=== PATIENT | female | born 1985 | race Caucasian/White ===

== ENCOUNTER 2019-09-21 09:54 | Outpatient (RCR) | payer OTHER, SELFPAY ==
--- NOTE | 2019-09-21 11:12 | OTOPEVAL ---
Thank you for referring this patient to [facility] [place]. Please review, sign, date and return this plan of care VARUN. I agree with and certify that the following plan of care is medically necessary. Referring Physician Date Admitting Provider: Attending Provider: PHYSICIAN NOT ON STAFF Referring Provider: *OT Outpatient Evaluation Start: 09/21/19 10:03 Freq: Status: Active Protocol: Document 09/21/19 10:04 [facility] (Rec: 09/21/19 11:11 [facility] [id number]) Therapy Assessment Status Assessment Status Assessment Status Evaluation Outpatient Past Medical History Other History Hx Other Surgeries Yes: ulnar nerve release, lipoma removal Evaluation Information Problem Diagnosis radial styloid tenosynovitis Onset 09/02/19 Cause R de quervains release Additional Evaluation Detail Surgery on 09/02/19 Subjective Information Patient reports a history of R Query Text:As Reported By Patient/ wrist/thumb pain for the last Family year. She had surgery on and presents in a forearm thumb spica orthosis. Patient reports that it has been painful to move. Diagnostic Tests X-Rays For This Problem Yes MRI For This Problem Yes Prior Level of Function Activity Level (Last 3 Months) Hand Dominance Right Activity of Daily Living Ability Independent Indoor/Home Mobility Independent Community Mobility Independent Stairs Ability Independent Functional Cognition (Planning, Shopping Independent , Taking Medications) Cooking Yes Cleaning Yes Laundry Yes Shopping Yes Driving Yes Medications Home Meds (Include: OTC, RX, Vitamins, Advil Herbals, Dose, Route,and Frequency) Query Text:Home Med Entries Will No Longer Recall From Past Visits. Home Meds Must Be Re-entered With Each Visit. Home Setting Home Type House Living Situation With Minor Child,With Spouse Mobility Assistive Devices (Used Last 3 None Months) Pain Assessment Timing of Pain Assessment Timing of Pain Assessment Assessment Pain Scale Pain Scale Used Numeric (1 - 10) Self Report Pain Assessment Right Wrist(s) Reported Pain Level 2 Lowest Pain Intensity 2 Greatest Pain Intensity 8 Other Pain Aggravating Factors wrist movement Other Alleviating Interventions advil Pain Score
== END 2019-10-20 16:00 | disposition home or self-care (01) ==
LOC: CHSOT 09:54
DX: M65.4 Radial styloid tenosynovitis [de Quervain] (principal)
CPT/HCPCS: 97035; 97110; 97140; 97165

== ENCOUNTER 2020-03-14 13:32 | Outpatient (NON) | payer OTHER, SELFPAY ==
[2020-03-14 13:52] LABS: Add Urine Microscopic? YES; Appearance Urine Sl Cloudy (Clear); Bilirubin Urine Negative (Negative); Blood Urine Negative (Negative); Color Urine Yellow (Yellow); Glucose Urine UA Negative (Negative); Ketones Urine Negative (Negative); Leukocyte Esterase Ur 1+ LEU/UL (Negative); Nitrate Urine Negative (Negative); Protein Urine Negative (Negative); Specific Grav Ur 1.025 (1.010-1.020); Urobilinogen Urine 0.2 mg/dL (0.2-1.0); pH Urine 6.5 (5.0-8.0)
[2020-03-14 14:09] LABS: RBC Urine 0-2 /hpf (0-2)
[2020-03-14 14:10] LABS: Bacteria Urine 4+ /hpf; Squamous Epithelial Cell Urine Moderate /hpf (Few)
== END 2020-03-14 13:33 ==
LOC: CHSLAB 13:32
PROVIDERS: Visit Provider Nurse Practitioner Family
DX: R10.9 Unspecified abdominal pain (principal)
CPT/HCPCS: 81001; 87086; 87088

== ENCOUNTER 2020-03-18 07:26 | Outpatient (CLI) | payer OTHER, SELFPAY ==
--- NOTE | ~2020-03-18 | US_ITS ---
US abdomen complete DATE: 03/18/2020 08:30 INDICATION: Abdominal pain TECHNIQUE: Real-time imaging of the abdomen, Doppler analysis COMPARISON: 12/02/2012 CT abdomen pelvis 06/14/2016 abdominal ultrasound FINDINGS: No hepatic or pancreatic space-occupying mass lesion is evident. There is normal hepatopeda l portal venous flow direction. There is borderline splenic size, the spleen measuring approximately 13 cm length, 14 cm being upper limits of normal. There are numerous filling defects in the dependent aspect of the gallbladder, with shadowing, consis tent with cholelithiasis. No gallbladder wall thickening or pericholecystic abnormal fluid collection is noted. Negative sonographic Curtis's sign. The common bile duct measures 4 mm, within normal limits. No renal mass lesion is evident. The right kidney measures approximately 11.4 cm length, the left kid ra 12.1 cm length. No hydronephrosis. Normal caliber of the abdominal aorta. The inferior vena cava is patent and unremarkable. IMPRESSION: Numerous gallstones Borderline splenic size Reviewed, dictated and finalized at [facility]. Reviewed, dictated and finalized at location A.
[2020-03-18 09:19] LABS: Alanine Aminotransferase 47 U/L (14-59); Albumin Level 3.8 g/dL (3.4-5.0); Alkaline Phosphatase 62 U/L (46-116); Amylase 43 U/L (25-115); Anion Gap 8 mmol/L (8-16); Aspartate Amino Transferase 27 U/L (15-37); Bilirubin,Total 0.7 mg/dL (0.00-1.00); Blood Urea Nitrogen 12 mg/dL (7-18); Calcium 8.8 mg/dL (8.5-10.1); Carbon Dioxide 29 mmol/L (21-32); Chloride 105 mmol/L (98-108); Estimated Glomerular Filt Rate > 60; Glucose 85 mg/dL (70-99); Lipase 116 U/L (73-393); Osmolality Calculated 292 mOsm/kg (285-295); Potassium 4.1 mmol/L (3.5-5.1); Sodium 142 mmol/L (136-145); Total Protein 6.9 g/dL (6.4-8.2)
[2020-03-24 07:00] LABS: H pylori Ag Stool Not Detected (Not Detected)
== END 2020-03-18 07:27 | disposition home or self-care (01) ==
LOC: CHSIMG 07:28
PROVIDERS: PCP Nurse Practitioner Family; Visit Provider Nurse Practitioner Family
DX: R10.9 Unspecified abdominal pain (principal)
CPT/HCPCS: 36415; 76700; 80053; 82150; 83690; 87338

== ENCOUNTER 2020-12-12 16:15 | Outpatient (CLI) | payer OTHER, SELFPAY ==
[2020-12-12 17:43] LABS: SARS-CoV-2 RNA PCR Positive (Negative)
== END 2020-12-12 16:16 | disposition home or self-care (01) ==
LOC: CHSLAB 16:18
PROVIDERS: PCP Nurse Practitioner Family; Visit Provider Nurse Practitioner Family
DX: U07.1 COVID-19 (principal)
CPT/HCPCS: C9803; U0003; U0005

== ENCOUNTER 2021-07-05 09:26 | Outpatient (CLI) | payer OTHER, SELFPAY ==
--- NOTE | ~2021-07-05 | XR_ITS ---
XR chest 2V 07/05/2021 09:44 Indication: Acute upper respiratory infection Procedure: 2 view chest Comparison: Comparison to multiple prior studies sequentially, with oldest reviewed study dated 06/05. Findings: Left basilar atelectasis. No focal pneumonia, edema, pleural effusion or pneumothorax. No a cute osseous abnormality. Impression: 1: Left basilar atelectasis. Reviewed, dictated and finalized at location B. 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
== END 2021-07-05 09:27 | disposition home or self-care (01) ==
LOC: CHSIMG 09:30
PROVIDERS: PCP Nurse Practitioner Family; Visit Provider Family Medicine
DX: J06.9 Acute upper respiratory infection, unspecified (principal)
CPT/HCPCS: 71046

== ENCOUNTER 2021-07-22 09:13 | Outpatient (CLI) | payer OTHER, SELFPAY ==
[2021-07-22 09:44] LABS: Hemoglobin A1C 5.8 % (<5.7)
[2021-07-22 09:58] LABS: Free T4 Free Thyroxine 1.07 ng/dL (0.76-1.46); Thyroid Stimulating Hormone 2.29 uIU/mL (0.36-3.74)
[2021-07-26 04:31] LABS: Insulin Level Total 17.1 uIU/mL (<=19.6)
[2021-07-26 10:12] LABS: DHEA-Sulfate 112 mcg/dL (23-266)
[2021-07-26 11:59] LABS: Prolactin 6.9 ng/mL (***)
[2021-07-26 14:12] LABS: Testosterone Total 26 ng/dL (2-45)
== END 2021-07-22 09:14 | disposition home or self-care (01) ==
LOC: CHSLAB 09:15
PROVIDERS: PCP Nurse Practitioner Family; Visit Provider Nurse Practitioner
DX: E28.2 Polycystic ovarian syndrome (principal)
CPT/HCPCS: 36415; 82627; 83036; 83498; 83525; 84146; 84403; 84439; 84443

== ENCOUNTER 2022-01-15 10:14 | Outpatient (CLI) | payer OTHER, SELFPAY ==
[2022-01-15 10:26] LABS: Hematocrit 37.3 % (35.0-49.0); Hemoglobin 11.9 g/dL (12.0-15.0); Mean Corpuscular HGB Conc 31.9 g/dL (32.0-36.0); Mean Corpuscular Volume 84.8 fL (78.0-102.0); Mean Platelet Volume 9.2 fl (9.2-11.8); Platelet Count Result 174 K/mm3 (150-420); Red Cell Distribution Width 13.3 % (11.6-14.4); White Blood Count 5.4 K/mm3 (4.8-10.8)
[2022-01-15 10:37] LABS: Hemoglobin A1C 5.7 % (<5.7)
[2022-01-15 11:07] LABS: Alanine Aminotransferase 51 U/L (14-59); Albumin Level 3.5 g/dL (3.4-5.0); Alkaline Phosphatase 69 U/L (46-116); Anion Gap 5 mmol/L (8-16); Aspartate Amino Transferase 29 U/L (15-37); Bilirubin,Total 0.5 mg/dL (0.00-1.00); Blood Urea Nitrogen 14 mg/dL (7-18); Calcium 8.4 mg/dL (8.5-10.1); Carbon Dioxide 28 mmol/L (21-32); Chloride 107 mmol/L (98-108); Cholesterol 121 mg/dL (0-200); Estimated Glomerular Filt Rate > 60; Free T4 Free Thyroxine 1.25 ng/dL (0.76-1.46); Glucose 90 mg/dL (70-99); HDL Direct 36 mg/dL (40-60); LDL Cholesterol Calculated 71 mg/dL (<130); Osmolality Calculated 290 mOsm/kg (285-295); Sodium 140 mmol/L (136-145); Thyroid Stimulating Hormone 1.85 uIU/mL (0.36-3.74); Total Protein 7.2 g/dL (6.4-8.2); Triglycerides 71 mg/dL (0-150); Vitamin B12 539 pg/mL (193-986)
[2022-01-17 15:36] LABS: Vitamin D 25 Hydroxy 25 ng/mL (30-100)
== END 2022-01-15 10:15 | disposition home or self-care (01) ==
LOC: CHSLAB 10:17
PROVIDERS: PCP Nurse Practitioner Family; Visit Provider Nurse Practitioner
DX: Z01.419 Encounter for gynecological examination (general) (routine) without abnormal findings (principal); R53.83 Other fatigue
CPT/HCPCS: 36415; 80053; 80061; 82306; 82607; 83036; 84439; 84443; 85027

== ENCOUNTER 2022-02-28 12:20 | Outpatient (CLI) | payer OTHER, SELFPAY ==
[2022-02-28 13:22] LABS: SARS-CoV-2 RNA PCR Positive (Negative)
== END 2022-02-28 12:21 | disposition home or self-care (01) ==
LOC: CHSLAB 12:22
PROVIDERS: PCP Nurse Practitioner Family; Visit Provider Family Medicine
DX: U07.1 COVID-19 (principal)
CPT/HCPCS: C9803; U0003; U0005

== ENCOUNTER 2022-03-19 09:20 | Outpatient (CLI) | payer OTHER, SELFPAY ==
--- NOTE | ~2022-03-19 | XR_ITS ---
XR knee RT min 4V 03/19/2022 09:46 Indication: Right knee pain Procedure: 5 views right knee Comparison: No prior studies for comparison. Findings: No fracture, subluxation or dislocation. There is mild osteoarthritis. No significant joint effusion. No focal soft tissue abnormality. No foreign bodies. Impression: 1: Mild osteoarthritis of the right knee. Reviewed, dictated and finalized at location B. Impression: 1: Mild osteoarthritis of the right knee.
== END 2022-03-19 09:21 | disposition home or self-care (01) ==
LOC: CHSIMG 09:23
PROVIDERS: PCP Nurse Practitioner Family; Visit Provider Orthopaedic Surgery
DX: M25.561 Pain in right knee (principal)
CPT/HCPCS: 73564

== ENCOUNTER 2022-11-12 21:48 | Emergency (ER) | payer OTHER, SELFPAY ==
--- NOTE | ~2022-11-12 | XR_ITS ---
EXAMINATION: XR chest 2V Exam Date/Time: 11/12/2022 22:21 CDT HISTORY: COUGHING UP BLOOD, SOB, CONGESTION TODAY. Comparison: 07/24/2021. RESULT: Lines, tubes, and devices: None. Lungs and pleura: Clear. Cardiomediastinal silhouette: Stable. Other: No acute osseous or upper abdominal finding. IMPRESSION: No acute cardiopulmonary process. Reviewed, dictated and finalized at location K.
--- NOTE | 2022-11-12 21:49 | ECG_ITS ---
Measurements Intervals [place] Rate: 103 P: 18 IN: 150 QRS: 14 QRSD: 73 T: -12 QT: 321 QTc: 422 Interpretive Statements SINUS TACHYCARDIA BASELINE ARTIFACT LOW-VOLTAGE QRS IN PRECORDIAL LEADS BORDERLINE ECG NO PREVIOUS ECG AVAILABLE FOR COMPARISON Electronically Signed On 11-13-2022 14:58:20 CDT by Amrik Weaver M.D.
[2022-11-12 21:50] VITALS: BP 153/93; PULSE 107; RESP 20; TEMP 37.5; O2SAT 97
[2022-11-12 21:53] VITALS: BP 158/93; PULSE 108; RESP 18; TEMP 37.4; O2SAT 96
[2022-11-12 22:01] VITALS: BP 168/91; PULSE 107; RESP 18; O2SAT 95
--- NOTE | 2022-11-12 22:03 | ED.GENADULT ---
HPI - General Adult General Chief complaint: Chest Pain Stated complaint: chest pain Time Seen by Provider: 11/12/22 21:50 History of Present Illness HPI narrative: the patient is a 37-year-old woman with history of anxiety, obesity, and ADHD. She presents with upper respiratory tract infection symptoms over the last 3 days, starting with a sore throat followed by nasal congestion, rhinorrhea, and then today cough productive of yellow sputum with occasional red tinge. Subsequent to the coughing spells, she developed anterior chest pain, in the muscles of the anterior chest wall, which are tender to touch and reproduce her chest pain symptoms. She has had chills but no diaphoresis or fevers. Nausea occasionally. No abdominal pain. No vomiting. No urinary symptoms. No back pain. Feels weak and tired and miserable. Related Data Home Medications Medication Instructions Recorded Confirmed ergocalciferol (vitamin D2) 1,250 1,250 mcg PO WEEKLY 11/12/22 11/12/22 mcg (50,000 unit) capsule sumatriptan succinate 25 mg tablet 25 mg PO DAILY 11/12/22 11/12/22 tizanidine 4 mg tablet 4 mg PO Q8H PRN Muscle Spasm 11/12/22 11/12/22 Allergies Allergy/AdvReac Type Severity Reaction Status Date / Time No Known Allergies Allergy Verified 04/19/22 09:32 Review of Systems Review of Systems: All systems reviewed & are unremarkable except as noted in HPI and below Constitutional: Constitutional: Reports as per HPI, Reports no additional constitutional complaints, Reports chills, Denies excessive sweating, Reports fatigue, Reports fever(s) ( Temperature maximum 99.5), Denies headache(s) and Reports weakness Eyes: Eyes: Reports as per HPI, Reports no additional eye complaints, Denies change in vision and Denies photophobia ENT: Reports system reviewed and no additional complaints, except as documented, Reports as per HPI, Denies dysphagia, Denies vertigo, Denies dizziness, Denies headache(s), Denies lip swelling, Reports nasal congestion, Reports sore throat, Denies throat swelling and Denies tongue swelling Cardiovascular: Cardiovascular: Reports as per HPI, Reports no additional cardiovascular complaints, Reports chest pain ( following coughing spells), Denies syncope, Denies rapid heart rate and Denies dyspnea Respiratory: Respiratory: Reports as per HPI, Reports no additional respiratory complaints, Reports cough, Denies dyspnea and Denies wheezing Gastrointestinal: Gastrointestinal: Reports as per HPI, Reports no additional gastrointestinal complaints, Denies abdominal pain, Denies constipation, Denies dysphagia, Denies diarrhea, Reports nausea and Denies vomiting Genitourinary: Genitourinary: Reports as per HPI, Denies hematuria, Denies urinary frequency, Denies dysuria, Denies urinary incontinence and Denies urinary urgency Musculoskeletal: Musculoskeletal: Reports no additional musculoskeletal complaints, Denies back pain, Denies myalgias, Denies arthralgias, Denies joint swelling and Denies numbness Integumentary/Breasts: Skin/Breast: Reports system reviewed and no additional complaints, except as docu, Denies pruritus, Denies erythema, Denies rash and Denies skin ulcer Neurologic: Reports system reviewed and no additional complaints, except as documented, Reports as per HPI, Denies confusion, Denies vertigo, Denies dizziness, Denies syncope, Denies headache(s), Denies focal weakness, Denies numbness and Reports weakness ( generalized) Psychiatric: Psychiatric: Reports as per HPI, Reports anxiety, Denies confusion, Denies depression, Denies homicidal ideation and Denies suicidal ideation Endocrine: Endocrine: Reports no additional endocrine complaints, Denies excessive sweating, Denies fatigue, Denies polydipsia and Denies polyuria Hematologic/Lymphatic: Hematologic/Lymphatic: Reports no additional hematologic/lymphatic complaints, Denies easy bleeding and Denies easy bruising Allergic/Immunologic: Allergic/Immunologic: Reports no additio
[2022-11-12 22:17] LABS: Basophils Absolute Auto 0.03 K/mm3 (0.00-0.10); Basophils Percent Auto 0.4 % (0.0-1.0); Eosinophils Percent Auto 1.4 % (1.0-6.0); Hematocrit 37.3 % (35.0-49.0); Hemoglobin 12.4 g/dL (12.0-15.0); Immature Granulocyte Absolute 0.02 K/mm3 (0.00-0.00); Immature Granulocyte Percent A 0.3 % (0.0-0.0); Lymphocytes Absolute Auto 1.13 K/mm3 (1.10-4.50); Lymphocytes Percent Auto 16.3 % (18.0-42.0); Mean Corpuscular HGB Conc 33.2 g/dL (32.0-36.0); Mean Corpuscular Hemoglobin 27.5 pg (27.0-31.0); Mean Corpuscular Volume 82.7 fL (78.0-102.0); Mean Platelet Volume 9.9 fl (9.2-11.8); Monocytes Absolute Auto 0.37 K/mm3 (0.10-0.90); Monocytes Percent Auto 5.3 % (2.0-11.0); Neutrophils Absolute Auto 5.3 K/mm3 (1.7-7.2); Neutrophils Percent Auto 76.3 % (50.0-70.0); Platelet Count Result 168 K/mm3 (150-420); Red Blood Count 4.51 M/mm3 (4.20-5.40); Red Cell Distribution Width 12.7 % (11.6-14.4); White Blood Count 6.9 K/mm3 (4.8-10.8)
[2022-11-12] MEDS: IBUPROFEN 400 MG TABLET 800 MG PO (22:32)
[2022-11-12] MEDS: BENZONATATE 100 MG CAPSULE 200 MG PO (22:32)
[2022-11-12] MEDS: ACETAMINOPHEN 500 MG TABLET 1000 MG PO (22:33)
[2022-11-12] MEDS: ONDANSETRON HCL ODT 4 MG TABLET 8 MG PO (22:34)
[2022-11-12] MEDS: LORazepam (*CRX) 1 MG TABLET PO (22:34)
[2022-11-12] MEDS: CYCLOBENZAPRINE HCL 10 MG TABLET PO (22:34)
[2022-11-12] MEDS: guaiFENesin/DEXTROMETHORPHAN 5 ML UDC 10 ML PO (22:34)
[2022-11-12 22:39] LABS: Alanine Aminotransferase 40 U/L (14-59); Albumin Level 3.8 g/dL (3.4-5.0); Alkaline Phosphatase 74 U/L (46-116); Anion Gap 8 mmol/L (8-16); Aspartate Amino Transferase 23 U/L (15-37); Bilirubin,Total 0.7 mg/dL (0.00-1.00); Blood Urea Nitrogen 11 mg/dL (7-18); Calcium 8.9 mg/dL (8.5-10.1); Carbon Dioxide 30 mmol/L (21-32); Chloride 103 mmol/L (98-108); Estimated CRCL calculation 97 ml/min; Estimated Glomerular Filt Rate > 60; Glucose 114 mg/dL (70-99); Osmolality Calculated 292 mOsm/kg (285-295); Potassium 3.8 mmol/L (3.5-5.1); Sodium 141 mmol/L (136-145); Total Protein 7.5 g/dL (6.4-8.2); Troponin I 4.9 ng/L (0.00-60.4)
--- NOTE | 2022-11-12 23:26 | PC.NURSE ---
nasal and throat swabs sent to lab
[2022-11-13 00:29] LABS: Influenza A QL RT-PCR Negative (Negative); Influenza B QL RT-PCR Negative (Negative); RSV RNA, RT-PCR Negative (Negative); SARS-CoV-2 RNA PCR Negative (Negative); Strep Group A RT-PCR Not Detected (Negative)
[2022-11-13 01:25] VITALS: BP 151/93; PULSE 105; RESP 17; TEMP 36.7; O2SAT 94
== END 2022-11-13 01:26 | disposition home or self-care (01) ==
PROVIDERS: Emergency Provider Emergency Medicine; PCP Nurse Practitioner Family
DX: R07.89 Other chest pain (principal); J06.9 Acute upper respiratory infection, unspecified; Z20.822 Contact with and (suspected) exposure to COVID-19
CPT/HCPCS: 36415; 71046; 80053; 84484; 85025; 87637; 87651; 93005; 99284; A9270

== ENCOUNTER 2022-12-15 18:51 | Emergency (ER) | payer OTHER, SELFPAY ==
--- NOTE | 2022-12-15 18:51 | ED.HA ---
HPI - Headache General Chief Complaint: Headache Stated Complaint: HEADACHE Time Seen by Provider: 12/15/22 18:51 Source: patient Mode of arrival: ambulatory Limitations: no limitations History of Present Illness HPI Narrative: Karlee is a 37-year-old female patient presenting to the clinic today with complaints of a migraine trinh that began this morning. She reports she has taken her max dose when tripped and along with Tylenol and Advil. Without much relief. Currently rates her headache an 8 out of 10. States she is having some nausea and has had 1 episode of vomiting as well as photosensitivity and phonosensitivity. Denies any visual changes or dizziness. Blood pressure is elevated at 145/104 in the clinic today. Does not have history of high blood pressure and is not taking any blood pressure medications. Related Data Home Medications Medication Instructions Recorded Confirmed ergocalciferol (vitamin D2) 1,250 1,250 mcg PO WEEKLY 11/12/22 12/15/22 mcg (50,000 unit) capsule sumatriptan succinate 25 mg tablet 25 mg PO DAILY 11/12/22 12/15/22 Allergies Allergy/AdvReac Type Severity Reaction Status Date / Time No Known Allergies Allergy Verified 12/15/22 18:54 Review of Systems Review of Systems: Pertinent positives per HPI. Patient denies any fever, chills, rash, visual changes, dizziness, cough, runny nose, sore throat, shortness of breath, chest pain, palpitations, diarrhea, constipation, abdominal pain, or any urinary issues. PMFSH Past Medical History Medical History ADHD (attention deficit hyperactivity disorder) Arthritis of knee, right Avulsion fracture of lateral malleolus of left fibula Elevated glucose Exposure to COVID-19 virus Neck Pain Overweight Prepatellar bursitis, right knee Right knee pain Sleep apnea URI (upper respiratory infection) Vaginal delivery x3 Surgical History Surgical History History of appendectomy Age 18 History of elbow surgery History of hand surgery Family History Family History Father Family history of type 2 diabetes mellitus Hypertension Other Diabetes mellitus Social History Social History Smoking status: Never smoker Alcohol intake: current Substance use: never Substance use type: does not use Lack of Transportation: No Lack of Food: Never True Current Housing: I Have Housing Concerned About Future Housing: No Difficulty Paying Gas/Electric Bills: No Difficulty Paying for Meds: No Currently Unemployed: No Education: High School Diploma/GED Difficulty w/ Childcare or Family Care: No Living arrangements: with family Gender identity (if verbalized by the patient): Female Comments At the time of my signature, I reviewed and agree with the nursing past medical, surgical, social, and family history. There is no relevant family history pertinent to the patient complaint. Exam Narrative: General: Well-developed, obese, in no apparent distress Head: Normocephalic, atraumatic Eyes: Pupils equally round and reactive to light bilaterally, EOM intact, sclera and conjunctive clear, no discharge, lids normal Ears: TMs intact and clear, ear canals clear, no drainage, grossly hearing normal. Nose: Nares patent, no discharge, no inflammation, no sinus tenderness. Mouth: Oropharynx without lesions or masses, good dentition, MMM. Tongue midline, even rise and fall of uvula Neck: Supple, trachea midline, no enlargement of anterior or posterior cervical nodes, no thyroid masses or goiter palpable. Cardio: Regular rate and rhythm, s1 and s2 normal, no murmur appreciated. Resp: Clear to auscultation bilaterally anteriorly and posteriorly, no rhonchi, rales, wheezing or rubs Mu
[2022-12-15 18:56] VITALS: BP 145/104; PULSE 83; RESP 16; TEMP 36.2; O2SAT 97
[2022-12-15 18:59] VITALS: BP 145/104; PULSE 83; RESP 16; TEMP 36.2; O2SAT 97
[2022-12-15] MEDS: ONDANSETRON HCL ODT 4 MG TABLET SUBLINGUAL (19:03)
[2022-12-15] MEDS: KETOROLAC (*BKC) 60 MG/2 ML VIAL IM (19:05)
== END 2022-12-15 19:15 | disposition home or self-care (01) ==
PROVIDERS: Emergency Provider Nurse Practitioner Family; PCP Nurse Practitioner Family
DX: G43.009 Migraine without aura, not intractable, without status migrainosus (principal); M17.11 Unilateral primary osteoarthritis, right knee
CPT/HCPCS: 96372; 99213; A9270; G0463; J1885

== ENCOUNTER 2023-02-21 11:09 | Outpatient (CLI) | payer OTHER, SELFPAY ==
--- NOTE | ~2023-02-21 | XR_ITS ---
XR wrist LT 2V DATE: 02/21/2023 11:46 INDICATION: Pain/lump at dorsal left wrist for one month TECHNIQUE: 4 views COMPARISON: None FINDINGS: No fracture or dislocation, periosteal reaction or bone destruction, joint space narrowing, erosive change or chondrocalcinosis. IMPRESSION: Negative Reviewed, dictated and finalized at location L. IMPRESSION: Negative
[2023-02-25 13:03] LABS: Vitamin D 25 Hydroxy 41 ng/mL (30-100)
== END 2023-02-21 11:10 | disposition home or self-care (01) ==
LOC: CHSLAB 11:11
PROVIDERS: PCP Nurse Practitioner Family; Visit Provider Nurse Practitioner Family
DX: M25.532 Pain in left wrist (principal); Z79.899 Other long term (current) drug therapy
CPT/HCPCS: 36415; 73100; 82306

== ENCOUNTER 2023-03-22 16:21 | Outpatient (RCR) | payer OTHER, SELFPAY ==
--- NOTE | 2023-03-22 17:20 | OPREHPOC ---
Outpatient Therapy Plan of Care This is a Multidisciplinary Plan of Care that may contain components documented by all disciplines (PT, OT, and ST.) PT Problem 1 PT Problem #1 Knowledge Deficit PT Goal 1 Goal Patient to demonstrate independence with HEP Target Visit 5 PT Problem 2 PT Problem #2 Pain PT Goal 1 Goal Patient to report highest pain at 2/10 Target Visit 10 PT Problem 3 PT Problem #3 Impaired Range of Motion PT Goal 1 Goal Patient to demonstrate R shoulder flexion AROM to 150 deg to be able to reach into cabinet at PLOF Target Visit 10 PT Problem 4 PT Problem #4 Impaired Strength PT Goal 1 Goal Patient to demonstrate 5/5 strength of R shoulder to return to lifting for household tasks at PLOF. Target Visit 10 PT Problem 5 PT Problem #5 Impaired Functional Mobil PT Goal 1 Goal 1. patient to improve LEFS score by 20% 2. Patient to report ability to complete all laundry and house hold chores with no increase in pain. Target Visit 10
--- NOTE | 2023-03-22 17:20 | PTOPEVAL1 ---
Assessment and note entered by Jade Raymundo DPT Evaluation Information Assessment Status Evaluation Diagnosis R shoulder pain Onset 03/13/23 Subjective Information Patient reports that in May 2022 she had a R shoulder biceps tendonesis and labral repair. She reports following surgery and PT her shoulder was feeling great until she was out cleaning her car at the end of February and noticed increased pain that is continuing to get worse. Patient does report she notices pain that radiates down the back of the R arm. Patient reports difficulty with reaching, lifting,laundry and reports limited ROM. Patient reports she works at [employer] as a [employer]. Reported Pain Level Pain Score 4: Self Report Assessment PT Clinical Summary Patient is a 37 year old female who presents to PT with R shoulder pain. Patient demonstrates impaired posture, decreased R shoulder AROM and decreased R shoulder strength impairing her ability to reach into cabinets, lift objects and reach for anything away from her body. She would benefit from skilled PT to address impairments and return to PLOF. Plan of Care Interventions Electrical Stimulation,Hot Pack/Cold Pack,Manual Therapy,Mechanical Traction,Neuro Re-education, Patient/Caregiver Educati,Therapeutic Activities, Therapeutic Exercise,Self-Care/Home Management PT Services Indicated Yes Treatment Frequency and 2x weekly for 10 visits Duration These treatments will address the objective and functional deficits as defined above. The patient will be advanced safely and appropriately in order for the patient to progress towards his/her prior level of function. Additional exercises will be introduced and as well as a comprehensive home exercise program upon discharge, if needed, ?to ensure carryover of functional gains achieved in the clinic. This treatment plan has been reviewed and agreement upon by the patient.
--- NOTE | 2023-03-25 10:26 | PCPTNOTE ---
Pt. cancelled her appointment on this date due to having another appointment scheduled at the same time.
--- NOTE | 2023-04-10 15:39 | PCPTNOTE ---
patient called and cancelled PT today due to work. JTF
== END 2023-05-09 15:31 | disposition home or self-care (01) ==
LOC: CHSPT 16:21
DX: M25.511 Pain in right shoulder (principal)
CPT/HCPCS: 97014; 97110; 97112; 97150; 97161; G0283

== ENCOUNTER 2023-07-31 11:05 | Outpatient (RCR) | payer OTHER, SELFPAY ==
--- NOTE | 2023-07-31 13:47 | OPREHPOC ---
Outpatient Therapy Plan of Care This is a Multidisciplinary Plan of Care that may contain components documented by all disciplines (PT, OT, and ST.) PT Problem 1 PT Problem #1 Knowledge Deficit PT Goal 1 Goal Patient to demonstrate independence with HEP Target Visit 6 PT Problem 2 PT Problem #2 Pain PT Goal 1 Goal Patient to report highest pain at 2/10 Target Visit 12 PT Problem 3 PT Problem #3 Impaired Range of Motion PT Goal 1 Goal 1. Patient to demonstrate 160 deg of R shoulder flexion to return to reaching into cabinets 2. Patient to demonstrate ability to reach to base of skull to improve ability to fix her hair Target Visit 12 PT Problem 4 PT Problem #4 Impaired Strength PT Goal 1 Goal Patient to demonstrate 5/5 strength of R shoulder to improve ability to lift objects for house hold tasks Target Visit 12 PT Problem 5 PT Problem #5 Impaired Functional Mobil PT Goal 1 Goal 1. Patient to report no pain with house hold chores 2. Patient to improve QuickDash by 20% 3. Patient to report ability to sleep with no disturbance due to R shoulder pain Target Visit 12
--- NOTE | 2023-07-31 13:47 | PTOPEVAL1 ---
Assessment and note entered by Jade Raymundo DPT Evaluation Information Assessment Status Evaluation Diagnosis R shoulder pain Onset 07/04/23 Subjective Information Patient reports she underwent R shoulder arthroscopic surgery on 07/04/23 with a patch placed over the R RTC and arthritis cleaned out . She was in a sling for the first 3 weeks. She is on a 2# weight restriction with progression to 5# through 6 weeks. She has difficulty with lifting her arm, cleaning, sleeping, and fixing her hair. She is currently not working but does have a return to work date of 10/04/23. She returns to [place] in 3 weeks. Reported Pain Level Pain Score 2: Self Report Assessment PT Clinical Summary Mrs. Marrero is a 38 year old female who presents to PT with R shoulder pain s/p R shoulder arthroscopy. Patient demonstrates decreased R shoulder ROM, decreased R shoulder strength and increased pain impairing her ability to fix her hair, complete house hold tasks and sleeping. Patient would benefit from skilled PT to address impairments and return to PLOF. Plan of Care Interventions Electrical Stimulation,Hot Pack/Cold Pack,Manual Therapy,Neuro Re-education,Patient/Caregiver Educati,Therapeutic Activities,Therapeutic Exercise PT Services Indicated Yes Treatment Frequency and 2x weekly for 12 visits Duration These treatments will address the objective and functional deficits as defined above. The patient will be advanced safely and appropriately in order for the patient to progress towards his/her prior level of function. Additional exercises will be introduced and as well as a comprehensive home exercise program upon discharge, if needed, ?to ensure carryover of functional gains achieved in the clinic. This treatment plan has been reviewed and agreement upon by the patient.
--- NOTE | 2023-08-28 08:54 | PCPTNOTE ---
Patient cancelled session today due to a migraine.
--- NOTE | 2023-09-06 12:31 | OPREHPOC ---
Outpatient Therapy Plan of Care This is a Multidisciplinary Plan of Care that may contain components documented by all disciplines (PT, OT, and ST.) PT Problem 1 PT Problem #1 Knowledge Deficit PT Goal 1 Goal Patient to demonstrate independence with HEP Target Visit 6 Progress Met PT Problem 2 PT Problem #2 Pain PT Goal 1 Goal Patient to report highest pain at 2/10 Target Visit 12 Progress Not Met PT Problem 3 PT Problem #3 Impaired Range of Motion PT Goal 1 Goal 1. Patient to demonstrate 160 deg of R shoulder flexion to return to reaching into cabinets 2. Patient to demonstrate ability to reach to base of skull to improve ability to fix her hair Target Visit 12 Progress Not Met PT Problem 4 PT Problem #4 Impaired Strength PT Goal 1 Goal Patient to demonstrate 5/5 strength of R shoulder to improve ability to lift objects for house hold tasks Target Visit 12 Progress Not Met PT Problem 5 PT Problem #5 Impaired Functional Mobil PT Goal 1 Goal 1. Patient to report no pain with house hold chores 2. Patient to improve QuickDash by 20% 3. Patient to report ability to sleep with no disturbance due to R shoulder pain Target Visit 12 Progress Not Met
--- NOTE | 2023-09-06 12:31 | PTOPPROGNS ---
Assessment and note entered by JT File, PT Evaluation Information Assessment Status Progress Diagnosis R shoulder pain Onset 07/04/23 Subjective Information patient has continued pain in the R shoulder with lifting and reaching overhead. she reports the pain is on the outside of the shoulder, and reports the surgeons office believes it is related to healing of the patch. she reports she is still unable to reach overhead and control down from reaching overhead without pain. she reports it does feel like it is getting better, but still not where she wants to be. Assessment PT Clinical Summary mrs. miguel presents to skilled PT for her 10th skilled therapy visit this date. she continues to have pain and clicking in the R shoulder with reaching overhead and lifting activities. her R shoulder passive and active ROM are improved, but she still presents with deficits in goals of rom. she also presents with deficits in achievement of goals for pain, strength, and functional use. she would benefit from continued skilled PT to address her remaining objective/functional deficits and return to her prior level functional activity performance/quality of life. Plan of Care Interventions Electrical Stimulation,Hot Pack/Cold Pack,Manual Therapy,Neuro Re-education,Patient/Caregiver Educati,Therapeutic Activities,Therapeutic Exercise PT Services Indicated Yes Treatment Frequency and continue skilled PT per initial POC Duration These treatments will address the objective and functional deficits as defined above. The patient will be advanced safely and appropriately in order for the patient to progress towards his/her prior level of function. Additional exercises will be introduced and as well as a comprehensive home exercise program upon discharge, if needed, ?to ensure carryover of functional gains achieved in the clinic. This treatment plan has been reviewed and agreement upon by the patient.
--- NOTE | 2023-09-11 10:09 | OPREHPOC ---
Outpatient Therapy Plan of Care This is a Multidisciplinary Plan of Care that may contain components documented by all disciplines (PT, OT, and ST.) PT Problem 1 PT Problem #1 Knowledge Deficit PT Goal 1 Goal Patient to demonstrate independence with HEP Target Visit 6 Progress Met PT Problem 2 PT Problem #2 Pain PT Goal 1 Goal Patient to report highest pain at 2/10 Target Visit 20 Progress Not Met PT Problem 3 PT Problem #3 Impaired Range of Motion PT Goal 1 Goal 1. Patient to demonstrate 160 deg of R shoulder flexion to return to reaching into cabinets 2. Patient to demonstrate ability to reach to base of skull to improve ability to fix her hair Target Visit 20 Progress Not Met PT Problem 4 PT Problem #4 Impaired Strength PT Goal 1 Goal Patient to demonstrate 5/5 strength of R shoulder to improve ability to lift objects for house hold tasks Target Visit 20 Progress Not Met PT Problem 5 PT Problem #5 Impaired Functional Mobil PT Goal 1 Goal 1. Patient to report no pain with house hold chores 2. Patient to improve QuickDash by 20%. met 3. Patient to report ability to sleep with no disturbance due to R shoulder pain Target Visit 20 Progress Partially Met
--- NOTE | 2023-09-11 10:10 | PTOPREEVAL ---
Assessment and note entered by JT File, PT Evaluation Information Assessment Status Re-evaluation Diagnosis R shoulder pain Onset 07/04/23 Subjective Information patient reports she does not return to the MD until the . she reports she still does not feel the shoulder is strong enough, and she has continued clicking in the shoulder. she would like to continue skilled PT to work on these issues. she reports she did go back to work. 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 Reported Pain Level Pain Score 0: Self Report Pain Score 6: Self Report Assessment PT Clinical Summary mrs. miguel presents to skilled PT for her 12th skilled therapy visit. she has displayed improvements in R shoulder rom and strength since initial evaluation and progress note. she still has not achieved goals for pain, rom, strength, and functional activity performance. she was progressed in exercises today to improve strength and functional stability/endurance of the R shoulder. she has no increased pain with new exercises, but reports fatigue and soreness. she presents to skilled PT with new orders to continue skilled PT. she would benefit from continued skilled PT to address her remaining objective/ functional deficits and return to her prior level functional activity performance and quality of life. Plan of Care Interventions Electrical Stimulation,Hot Pack/Cold Pack,Manual Therapy,Neuro Re-education,Patient/Caregiver Educati,Therapeutic Activities,Therapeutic Exercise PT Services Indicated Yes Treatment Frequency and continue skilled PT 2x weekly for 8 more visits Duration These treatments will address the objective and functional deficits as defined above. The patient will be advanced safely and appropriately in order for the patient to progress towards his/her prior level of function. Additional exercises will be introduced and as well as a comprehensive home exercise program upon discharge, if needed, ?to ensure carryover of functional gains achieved in the clinic. This treatment plan has been reviewed and agreement upon by the patient.
--- NOTE | 2023-09-18 16:14 | PCPTNOTE ---
patient was a no call/no show for skilled PT today.
--- NOTE | 2023-11-07 14:33 | PCPTNOTE ---
patient is following up with MD in a few weeks regarding release or continuation of PT
== END 2023-09-16 20:00 | disposition home or self-care (01) ==
LOC: CHSPT 11:05
DX: Z48.89 Encounter for other specified surgical aftercare (principal); Z98.890 Other specified postprocedural states
CPT/HCPCS: 97014; 97110; 97140; 97150; 97161; G0283

== ENCOUNTER 2024-02-10 09:41 | Outpatient (CLI) | payer OTHER, SELFPAY ==
[2024-02-10 09:59] LABS: Basophils Absolute Auto 0.02 K/mm3 (0.00-0.10); Basophils Percent Auto 0.4 % (0.0-1.0); Eosinophils Absolute Auto 0.16 K/mm3 (0.02-0.50); Eosinophils Percent Auto 2.8 % (1.0-6.0); Hematocrit 39.6 % (35.0-49.0); Hemoglobin 12.9 g/dL (12.0-15.0); Immature Granulocyte Absolute 0.03 K/mm3 (0.00-0.00); Immature Granulocyte Percent A 0.5 % (0.0-0.0); Lymphocytes Absolute Auto 1.39 K/mm3 (1.10-4.50); Lymphocytes Percent Auto 24.6 % (18.0-42.0); Mean Corpuscular HGB Conc 32.6 g/dL (32-36); Mean Corpuscular Hemoglobin 26.8 pg (27.0-31.0); Mean Corpuscular Volume 82.2 fL (78.0-102.0); Mean Platelet Volume 9.7 fl (9.2-11.8); Monocytes Absolute Auto 0.39 K/mm3 (0.10-0.90); Monocytes Percent Auto 6.9 % (2.0-11.0); Neutrophils Absolute Auto 3.67 K/mm3 (1.70-7.20); Neutrophils Percent Auto 64.8 % (50.0-70.0); Platelet Count Result 166 K/mm3 (150-420); Red Blood Count 4.82 M/mm3 (4.20-5.40); Red Cell Distribution Width 13.2 % (11.6-14.4); White Blood Count 5.7 K/mm3 (4.8-10.8)
[2024-02-10 11:00] LABS: Alanine Aminotransferase 37 U/L (14-59); Albumin Level 3.5 g/dL (3.4-5.0); Alkaline Phosphatase 55 U/L (46-116); Anion Gap 7 mmol/L (4-12); Aspartate Amino Transferase 24 U/L (15-37); Bilirubin,Total 0.6 mg/dL (0.00-1.00); Blood Urea Nitrogen 11 mg/dL (7-18); Calcium 8.7 mg/dL (8.5-10.1); Carbon Dioxide 28 mmol/L (21-32); Chloride 104 mmol/L (98-108); Estimated Glomerular Filt Rate > 60; Free T4 Free Thyroxine 1.04 ng/dL (0.76-1.46); Glucose 107 mg/dL (70-99); Iron 42 ug/dL (50-170); Magnesium 1.8 mg/dL (1.8-2.4); Osmolality Calculated 287 mOsm/kg (285-295); Potassium 3.9 mmol/L (3.5-5.1); Sodium 139 mmol/L (136-145); Thyroid Stimulating Hormone 2.99 uIU/mL (0.36-3.74); Total Protein 6.9 g/dL (6.4-8.2); Vitamin B12 535 pg/mL (193-986)
[2024-02-11 10:18] LABS: Vitamin D 25 Hydroxy 30 ng/mL (30-100)
== END 2024-02-10 09:42 | disposition home or self-care (01) ==
LOC: CHSLAB 09:43
PROVIDERS: PCP Nurse Practitioner Family; Visit Provider Nurse Practitioner Family
DX: R53.83 Other fatigue (principal); Z79.899 Other long term (current) drug therapy
CPT/HCPCS: 36415; 80053; 82306; 82607; 83540; 83735; 84439; 84443; 85025

== ENCOUNTER 2024-04-22 14:31 | Outpatient (CLI) | payer OTHER, SELFPAY ==
[2024-04-22 14:46] LABS: Basophils Absolute Auto 0.03 K/mm3 (0.00-0.10); Basophils Percent Auto 0.4 % (0.0-1.0); Eosinophils Absolute Auto 0.11 K/mm3 (0.02-0.50); Eosinophils Percent Auto 1.4 % (1.0-6.0); Hematocrit 39.2 % (35.0-49.0); Hemoglobin 12.8 g/dL (12.0-15.0); Immature Granulocyte Absolute 0.03 K/mm3 (0.00-0.00); Immature Granulocyte Percent A 0.4 % (0.0-0.0); Lymphocytes Absolute Auto 1.84 K/mm3 (1.10-4.50); Lymphocytes Percent Auto 23.8 % (18.0-42.0); Mean Corpuscular HGB Conc 32.7 g/dL (32-36); Mean Corpuscular Hemoglobin 26.9 pg (27.0-31.0); Mean Corpuscular Volume 82.4 fL (78.0-102.0); Mean Platelet Volume 9.6 fl (9.2-11.8); Monocytes Absolute Auto 0.49 K/mm3 (0.10-0.90); Monocytes Percent Auto 6.3 % (2.0-11.0); Neutrophils Absolute Auto 5.22 K/mm3 (1.70-7.20); Neutrophils Percent Auto 67.7 % (50.0-70.0); Platelet Count Result 217 K/mm3 (150-420); Red Blood Count 4.76 M/mm3 (4.20-5.40); Red Cell Distribution Width 13.5 % (11.6-14.4); White Blood Count 7.7 K/mm3 (4.8-10.8)
[2024-04-22 15:52] LABS: Free T4 Free Thyroxine 1.13 ng/dL (0.76-1.46); Iron 37 ug/dL (50-170); Percent Iron Saturation 12 % (12-57); Thyroid Stimulating Hormone 2.25 uIU/mL (0.36-3.74); Vitamin B12 589 pg/mL (193-986)
[2024-04-24 07:33] LABS: Thyroid Peroxidase Antibodies 2 IU/mL (<9)
[2024-04-24 07:58] LABS: Vitamin D 25 Hydroxy 30 ng/mL (30-100)
[2024-04-24 12:08] LABS: Total Triiodothyronine (T3) 120 ng/dL (76-181)
[2024-04-30 02:09] LABS: CRP, High Sensitivity 11.1 mg/L
[2024-05-06 15:03] LABS: Rheumatoid Factor Screen Negative (Negative)
== END 2024-04-22 14:32 | disposition home or self-care (01) ==
PROVIDERS: PCP Nurse Practitioner Family; Visit Provider Nurse Practitioner Family
DX: E61.1 Iron deficiency (principal); R53.83 Other fatigue; Z79.899 Other long term (current) drug therapy
CPT/HCPCS: 36415; 82306; 82607; 83540; 83550; 84439; 84443; 84480; 85025; 86038; 86039; 86141; 86376; 86430

== ENCOUNTER 2024-06-26 10:35 | Outpatient (CLI) | payer OTHER, SELFPAY ==
[2024-06-26 11:10] VITALS: BP 150/100; PULSE 98; RESP 20; TEMP 36.9; O2SAT 94; BMI 101.2
[2024-06-26 11:26] VITALS: BP 150/100; PULSE 98; RESP 20; TEMP 36.9; O2SAT 94
[2024-06-26] MEDS: SODIUM CHLORIDE 0.9% IV 1,000 ML 1000 ML IVPB (11:29)
--- NOTE | 2024-06-26 11:35 | PC.NURSE ---
Patient refuses Zofran, informs the physician gave her oral medication and she has been taking that.
[2024-06-26 12:25] VITALS: BP 150/95; PULSE 86; RESP 20; TEMP 36.8; O2SAT 96
== END 2024-06-26 10:36 | disposition home or self-care (01) ==
LOC: CHSTREATRM 10:36
PROVIDERS: PCP Nurse Practitioner Family; Visit Provider Family Medicine
DX: E86.0 Dehydration (principal)
CPT/HCPCS: 96360; 96366; J2405; J7030

== ENCOUNTER 2024-06-29 08:04 | Emergency (ER) | payer OTHER, SELFPAY ==
[2024-06-29] VITALS (7 sets, daily range): BP systolic 155–171; BP diastolic 94–109; PULSE 82–97; RESP 18–20; TEMP 36.1–36.2; O2SAT 93–96
--- NOTE | ~2024-06-29 | XR_ITS ---
XR chest 2V Ordering provider: Juan Santana MD History: 38 years Female with . COUGH,SOB,DYSPNEA . Comparison: None. FINDINGS: MEDIASTINUM: The cardiac silhouette is not enlarged. LUNGS: No effusions or pneumothorax. Opacification in the left mid and lower zones and in the right l ower lobe area medially. OTHER: No free air under the diaphragm. IMPRESSION: Bilateral basal pneumonia more in the left lower lobe. Follow-up to resolution advised. Reviewed, dictated and finalized at location A. [employer]
--- NOTE | 2024-06-29 08:24 | ED_ITS ---
HPI - URI/Sore Throat General Chief Complaint: Shortness of Breath/Dyspnea Stated Complaint: cough Time Seen by Provider: 06/29/24 08:18 Source: patient and family (spouse) Mode of arrival: ambulatory Limitations: no limitations History of Present Illness HPI Narrative: 38 year old female presents to the Emergency Department complaining of dry cough, now short of breath, not feeling well. Onset 6 days ago. T 102 several days ago. No vomiting or diarrhea. Cough non-productive. No known exposure. 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 Was seen by PCP 4 days ago and negative testing - diagnosed viral illness. MD elicited complaint: fever and cough Onset (ago): day(s) (6) Consistency: constant Severity: moderate Able to tolerate fluids by mouth: Yes Exacerbating factors: nothing Relieving factors: nothing Associated symptoms: fever, voice changes, cough and shortness of breath Treatments prior to arrival: other (symptomatic) Related Data Home Medications Medication Instructions Recorded Confirmed fluoxetine 40 mg capsule 40 mg PO DAILY 06/25/24 06/26/24 Allergies Allergy/AdvReac Type Severity Reaction Status Date / Time No Known Allergies Allergy Verified 06/25/24 13:04 Review of Systems Review of Systems: All systems reviewed & are unremarkable except as noted in HPI and below Constitutional: Constitutional: Reports as per HPI and Reports fever(s) Eyes: Eyes: Reports as per HPI ENT: Reports system reviewed and no additional complaints, except as documented and Denies sore throat Cardiovascular: Cardiovascular: Reports as per HPI and Denies chest pain Respiratory: Respiratory: Reports as per HPI, Reports cough and Reports dyspnea Gastrointestinal: Gastrointestinal: Reports as per HPI, Denies diarrhea, Denies nausea and Denies vomiting Genitourinary: Genitourinary: Reports no additional female genitourinary complaints Musculoskeletal: Musculoskeletal: Reports no additional musculoskeletal complaints Integumentary/Breasts: Skin/Breast: Reports system reviewed and no additional complaints, except as docu Neurologic: Reports system reviewed and no additional complaints, except as documented Psychiatric: Psychiatric: Reports no additional psychiatric complaints Endocrine: Endocrine: Reports no additional endocrine complaints Hematologic/Lymphatic: Hematologic/Lymphatic: Reports no additional hematologic/lymphatic complaints Allergic/Immunologic: Allergic/Immunologic: Reports no additional all ergic/immunologic complaints PMFSH Past Medical History Medical History ADHD (attention deficit hyperactivity disorder) Arthritis of knee, right Avulsion fracture of lateral malleolus of left fibula Elevated glucose Exposure to COVID-19 virus Neck Pain Overweight Prepatellar bursitis, right knee Right knee pain Sleep apnea URI (upper respiratory infection) Vaginal delivery x3 Surgical History Surgical History History of appendectomy Age 18 History of elbow surgery History of hand surgery Family History Family History Father Family history of type 2 diabetes mellitus Hypertension Other Diabetes mellitus Social History Social History Smoking status: Never smoker Alcohol intake: current Substance use: never Substance use type: does not use Lack of Transportation: No Lack of Food: Never True Current Housing: I Have Housing Concerned About Future Housing: No Difficulty Paying Gas/Electric Bills: No Difficulty Paying for Meds: No Currently Unemployed: No Education: High School Diploma/GED Difficulty w/ Childcare or Family Care: No Living arrangements: with family Gender identity (if verbalized by the patient): Female Exam Const: General: no acute distress Nutritional Appearance: obese Orientation/consciousness: patient oriented x3 Limitations: no limitations HENMT: Head: normal to inspection Ears: external ears normal Face/Nose/ Sinus: Normal external nose present Face and sinus: normal facial exam Mouth: Yes Normal oral and palatal mucosa present Throat: posterior oropharynx normal Eyes: Conjunctivae: conjunctivae normal Pupils: Equal, round and reactive pupils present EOM: EOMs intact bilaterally Direct Ophthalmoscopy: no photophobia Neck: Neck: normal visual inspection and no meningeal signs Chest: Chest palpation & inspection: normal inspection of the chest Resp: Auscultation: clear to auscultation bilaterally and diminished lung sounds Other: decreased breath sounds Cardio: Rate: regular rate Rhythm: regular rhythm Heart sounds: no murmurs GI: Inspection: non-distended GI Palp: Yes Soft to palpation, No Tenderness to palpation present (GI) and No Guarding due to palpation present (GI) : General: Yes bladder normal to palpation Back/Spine/Pelvis: Back: no CVA tenderness Skin: General skin exam: normal color Rashes: no rashes Neuro: General: patient oriented x3, moves all extremities, no meningeal signs, no focal motor deficits and CN's II-XI intact bilaterally Cranial nerves: Yes Nystagmus not present Speech: normal speech Gait exam (Neuro): Normal gait present Extrem: General: normal to inspection and no clubbing, cyanosis or edema Psych: Mental Status: mental status grossly normal Course Course Emergency Course: 38 y/o female presents to the ED c/o feeling ill for past 6 days. Was seen by PCP 4 days ago and had testing that was negative and diagnosed with viral illness. Has dry cough, shortness of breath now. Had T 102 several days ago. No N/V/D. PE: decreased breath sounds, pulse ox 93% CBC: H/H 13.1/38.5, Plt 162; wbc 5 with 70 S, 17 L, 9 M CMP: Na 138, K 3.7, Cl 102, CO2 28, Glc 108, BUN 9, Cr 0.73; LFT's normal Lactic: 0.8 Covid: negative Influenza: negative RSV: negative CXR: bibasilar pneumonia, L>R Tx: Rocephin 2 gm IVPB, Zithromax 500 mg po *reviewed and discusses results with patient and her . Discussed planned further management. Patient voices understanding and agreement. Rx and Instructions Vital Signs Vital signs: Vital Signs Temperature 36.2 C L 06/29/24 08:04 Pulse Rate 97 06/29/24 08:04 Respiratory Rate 20 06/29/24 08:04 Blood Pressure 171/109 H 06/29/24 08:04 Pulse Oximetry 93 06/29/24 08:04 Oxygen Delivery Room Air 06/29/24 08:04 Temperature 36.1 C L 06/29/24 09:54 Pulse Rate 92 06/29/24 09:54 Respiratory Rate 18 06/29/24 09:54 Blood Pressure 162/103 H 06/29/24 09:54 Pulse Oximetry 96 06/29/24 09:54 Oxygen Delivery Room Air 06/29/24 09:54 MDM - URI/Sore Throat Lab Data 06/29/24 08:36 06/29/24 08:36 Labs: Lab Results 06/29/24 Range/Units 08:36 WBC 5.0 (4.8-10.8) K/mm3 RBC 4.78 (4.20-5.40) M/mm3 Hgb 13.1 (12.0-15.0) g/dL Hct 38.5 (35.0-49.0) % MCV 80.5 (78.0-102.0) fL MCH 27.4 (27.0-31.0) pg MCHC 34.0 (32-36) g/dL RDW 12.9 (11.6-14.4) % Plt Count 162 (150-420) K/mm3 MPV 9.3 (9.2-11.8) fl Immature Gran % (Auto) 0.2 H (0.0-0.0) % Neut % (Auto) 70.5 H (50.0-70.0) % Lymph % (Auto) 17.5 L (18.0-42.0) % [place] % (Auto) 8.8 (2.0-11.0) % Eos % (Auto) 2.6 (1.0-6.0) % Baso % (Auto) 0.4 (0.0-1.0) % Lymph # (Auto) 0.88 L (1.10-4.50) K/mm3 [place] # (Auto) 0.44 (0.10-0.90) K/mm3 Eos # (Auto) 0.13 (0.02-0.50) K/mm3 Baso # (Auto) 0.02 (0.00-0.10) K/mm3 Abs Immat Gran (auto) 0.01 H (0.00-0.00) K/mm3 Absolute Neuts (auto) 3.54 (1.70-7.20) K/mm3 Absolute Nucleated RBC 0.00 (0.00-0.00) K/mm3 Nucleated RBC % 0.0 (0-0.0) % Sodium 138 (136-145) mmol/L Potassium 3.7 (3.5-5.1) mmol/L Chloride 102 (98-108) mmol/L Carbon Dioxide 28 (21-32) mmol/L Anion Gap 8 (4-12) mmol/L BUN 9 (7-18) mg/dL Creatinine 0.73 (0.55-1.02) mg/dL Estim Creat Clear Calc 144 ml/min Estimated GFR > 60 (59 - ) Glucose 108 H (70-99) mg/dL Calculated Osmolality 285 (285-295) mOsm/kg Lactic Acid 0.8 (0.4-2.0) mmol/L Calcium 9.0 (8.5-10.1) mg/dL Total Bilirubin 0.6 (0.00-1.00) mg/dL AST 24 (15-37) U/L ALT 25 (14-59) U/L Alkaline Phosphatase 80 (46-116) U/L Total Protein 7.3 (6.4-8.2) g/dL Albumin 3.3 L (3.4-5.0) g/dL Influenza A (RT-PCR) Negative (Negative) Influenza B (RT-PCR) Negative (Negative) RSV (RT-PCR) Negative (Negative) SARS-CoV-2 RNA (RT-PCR) Negative (Negative) Discharge Plan Discharge Clinical Impression: Pneumonia Patient Disposition: Home, Self-Care Condition: Stable Instructions: Antibiotic Form, Community Acquired Pneumonia (ED) Additional Instructions: Rest Push fluids Tylenol 650 mg every 4 hours and Ibuprofen 600 mg every 6 hours for fever and body aches Take medications as prescribed Follow up Primary Care Physician Patient Language: Polish Prescriptions: New Proair Digihaler 90 mcg/actuation aero powdr breath act w/sensor 2 inh inhalation Q4-6H PRN (Reason: shortness of breath or wheezing) Qty: 1 0RF azithromycin [Zithromax Z-José] 250 mg tablet See Rx Instructions .ROUTE .COMPLEX Qty: 6 0RF Rx Instructions: For 250 mg dose pack: take 500 mg today (day 1), then 250 mg for 4 days (days 2-5) No Action fluoxetine 40 mg capsule 40 mg PO DAILY ipratropium bromide 42 mcg (0.06 %) spray,non-aerosol 2 spray intranasal TID Qty: 15 5RF Rx Instructions: administer into each nostril ondansetron 4 mg tablet,disintegrating 4 mg PO Q8H PRN (Reason: nausea and vomiting) Qty: 20 0RF propranolol 80 mg capsule,extended release 24hr See Rx Instructions .ROUTE .COMPLEX Qty: 90 2RF Dose Instruction: TAKE 1 CAPSULE BY MOUTH EVERY DAY Rx Instructions: TAKE 1 CAPSULE BY MOUTH EVERY DAY metformin 500 mg tablet extended release 24 hr See Rx Instructions .ROUTE .COMPLEX Qty: 90 0RF Dose Instruction: TAKE 1 TABLET BY MOUTH EVERY EVENING Rx Instructions: TAKE 1 TABLET BY MOUTH EVERY EVENING Aimovig Autoinjector 70 mg/mL auto-injector 70 mg subcut MONTHLY Qty: 1 2RF ferrous sulfate 325 mg (65 mg iron) tablet 325 mg PO BID Qty: 30 2RF Nurtec ODT 75 mg tablet,disintegrating See Rx Instructions .ROUTE .COMPLEX Qty: 16 1RF Dose Instruction: 75 MG ORALLY ONCE NEEDED FOR MIGRAINE HEADACHE A SINGLE DOSE Rx Instructions: 75 MG ORALLY ONCE NEEDED FOR MIGRAINE HEADACHE A SINGLE DOSE Follow-up/Referrals: Joleen Silva NP [Primary Care Provider] - Stand Alone Forms: Work/School Release IP Time of Disposition: 10:00
[2024-06-29 08:44] LABS: Basophils Absolute Auto 0.02 K/mm3 (0.00-0.10); Basophils Percent Auto 0.4 % (0.0-1.0); Eosinophils Absolute Auto 0.13 K/mm3 (0.02-0.50); Eosinophils Percent Auto 2.6 % (1.0-6.0); Hematocrit 38.5 % (35.0-49.0); Hemoglobin 13.1 g/dL (12.0-15.0); Immature Granulocyte Absolute 0.01 K/mm3 (0.00-0.00); Immature Granulocyte Percent A 0.2 % (0.0-0.0); Lymphocytes Absolute Auto 0.88 K/mm3 (1.10-4.50); Lymphocytes Percent Auto 17.5 % (18.0-42.0); Mean Corpuscular Hemoglobin 27.4 pg (27.0-31.0); Mean Corpuscular Volume 80.5 fL (78.0-102.0); Mean Platelet Volume 9.3 fl (9.2-11.8); Monocytes Absolute Auto 0.44 K/mm3 (0.10-0.90); Monocytes Percent Auto 8.8 % (2.0-11.0); Neutrophils Absolute Auto 3.54 K/mm3 (1.70-7.20); Neutrophils Percent Auto 70.5 % (50.0-70.0); Platelet Count Result 162 K/mm3 (150-420); Red Blood Count 4.78 M/mm3 (4.20-5.40); Red Cell Distribution Width 12.9 % (11.6-14.4)
[2024-06-29 09:04] LABS: Lactic Acid Reflex 0.8 mmol/L (0.4-2.0)
[2024-06-29 09:08] LABS: Alanine Aminotransferase 25 U/L (14-59); Albumin Level 3.3 g/dL (3.4-5.0); Alkaline Phosphatase 80 U/L (46-116); Anion Gap 8 mmol/L (4-12); Aspartate Amino Transferase 24 U/L (15-37); Bilirubin,Total 0.6 mg/dL (0.00-1.00); Blood Urea Nitrogen 9 mg/dL (7-18); Carbon Dioxide 28 mmol/L (21-32); Chloride 102 mmol/L (98-108); Estimated CRCL calculation 144 ml/min; Estimated Glomerular Filt Rate > 60; Glucose 108 mg/dL (70-99); Osmolality Calculated 285 mOsm/kg (285-295); Potassium 3.7 mmol/L (3.5-5.1); Sodium 138 mmol/L (136-145); Total Protein 7.3 g/dL (6.4-8.2)
[2024-06-29 09:27] LABS: Influenza A QL RT-PCR Negative (Negative); Influenza B QL RT-PCR Negative (Negative); RSV RNA, RT-PCR Negative (Negative); SARS-CoV-2 RNA PCR Negative (Negative)
[2024-06-29] MEDS: cefTRIAXone 2 GM/NS 100 ML 2 GM/100 ML BAG IVPB (09:47)
[2024-06-29] MEDS: AZITHROMYCIN 250 MG TABLET 500 MG PO (09:48)
--- NOTE | 2024-06-29 09:51 | PC.NURSE ---
REPORT FROM RN BISI, PT IS SITTING UP ON STRETCHER, HAS IV MEDICATION INFUSING WITHOUT DIFFICULTY. PT HAS AT BEDSIDE. PT IS WHISPERING HER ANSWERS, STATES IT HURTS TO TALK. PT HAS BEEN PROVIDED JUICE. DENIES ANY OTHER NEEDS OR COMPLAINTS. NAD NOTED. VSS PER MONITOR. WILL CONTINUE TO MONITOR.
[2024-06-29] MEDS: IPRATROPIUM 0.5 MG/ALBUTEROL SULFATE 2.5 MG AMPUL.NEB 3 ML INHALATION (10:07)
== END 2024-06-29 10:20 | disposition home or self-care (01) ==
PROVIDERS: Emergency Provider Emergency Medicine; PCP Nurse Practitioner Family
DX: J18.9 Pneumonia, unspecified organism (principal); Z20.822 Contact with and (suspected) exposure to COVID-19
CPT/HCPCS: 36415; 71046; 80053; 83605; 85025; 87637; 96365; 99284; A9270; J0696

== ENCOUNTER 2024-10-02 12:41 | Outpatient (CLI) | payer OTHER, SELFPAY ==
[2024-10-02 12:53] LABS: Add Urine Microscopic? YES; Appearance Urine Clear (Clear); Bilirubin Urine Negative (Negative); Blood Urine Negative (Negative); Color Urine Light Yellow (Yellow); Glucose Urine UA Negative (Negative); Ketones Urine Negative (Negative); Leukocyte Esterase Ur 1+ LEU/UL (Negative); Nitrate Urine Negative (Negative); Protein Urine Negative (Negative); Specific Grav Ur 1.025 (1.010-1.020); Urobilinogen Urine 0.2 mg/dL (0.2-1.0)
[2024-10-02 12:57] LABS: Bacteria Urine 1+ /hpf; RBC Urine None seen /hpf (0-2); Squamous Epithelial Cell Urine Few /hpf (Few)
== END 2024-10-02 12:42 | disposition home or self-care (01) ==
LOC: CHSLAB 12:42
PROVIDERS: PCP Nurse Practitioner Family; Visit Provider Nurse Practitioner Family
DX: R39.9 Unspecified symptoms and signs involving the genitourinary system (principal)
CPT/HCPCS: 81001; 87086; 87186

== ENCOUNTER 2025-01-09 09:14 | Outpatient (CLI) | payer OTHER, SELFPAY ==
--- NOTE | ~2025-01-09 | XR_ITS ---
EXAMINATION: XR chest 2V Exam Date/Time: 01/09/2025 9:18 CDT HISTORY: productive cough x2 months Comparison: 06/29/2024. RESULT: Lines, tubes, and devices: None. Lungs and pleura: Mild streaky and groundglass subsegmental right basilar opacities. Streaky/patchy subsegmental left medial basilar opacities. Lungs otherwise clear. Cardiomediastinal silhouette: Stable. Other: No acute osseous or upper abdominal finding. IMPRESSION: Subsegmental bibasilar atelectasis/consolidation. Reviewed, dictated and finalized at location K.
--- OUTSIDE RECORDS SUMMARY | 2025-01-09 09:16 | XMS_ITS | Clinical Summary ---
Author Organization [facility] Address [address] [place] [address] Care Team Providers Care Gear Repair Supervisor Name Role Phone Ursula Julio MYERS Primary Care Provider Source Comments [facility],non-owned Affiliates and Associated Physician Practices is amultiple site organization consisting of ambulatory clinics and hospital sitesin [place], [place], [place] and [place]. This disclosure is being madepursuant to the Care Everywhere program and may not contain all information available regarding this patient. Last updated 18.[facility] Allergies Active Allergy Reactions Criticality Noted Date Comments Hydrocodone Nausea and/or Vomiting,Headache Low Sulfacetamide Itching 08/19/2024 Medications * Be aware that medications may not be up to date on this document. Alwaysverify current medications with the patient. SUMAtriptan (Imitrex) 25 MG tablet TAKE 1 TABLET BY MOUTH AT ONSET OF HEADACHE MAY REPEAT 1 TAB AFTER 2 HRS MAX=4 TABS/24 HR 2 Active tiZANidine (Zanaflex) 4 MG tablet TAKE 1 TABLET BY MOUTH EVERY 8 HOURS NEEDED FOR MUSCLE SPASMS 40 tablet 1 3 Active venlafaxine XR 24hr (Effexor XR) 37.5 MG capsule Take 1 (one) capsule by mouth once daily 3 Active traZODone (Desyrel) 50 MG tablet Take 1 (one) tablet by mouth at bedtime 3 Active lisinopril (Prinivil; Zestril) 10 MG tablet Take 1 (one) tablet by mouth once daily 3 Active methylphenidat e ER (Quillichew Er) 20 MG chew tablet Take 1 (one) tablet by mouth 2 times daily 3 Active vitamin D3 (Cholecalcifer ol) 25 MCG (1000 UNITS) tablet Take 2 (two) tablets by mouth once daily Active acetaminophen (Tylenol) 500 MG tablet Take 2 (two) tablets by mouth 3 times daily Maximum allowable Acetaminophen amount = 4 Grams (4000 mg) / 24 hours. 3 Active oxyCODONE, immediate release, (Roxicodone) 5 MG tabletIndicati ons:S/P rotator cuff repair Take 1 (one) tablet to 2 (two) tablets by mouth every 4 hours as needed for Pain (Moderate or Severe Pain) 42 tablet 3 Active Additional Information Patient not taking.Reported on 08/19/2024 Qulipta 60 MG TABS Take 1 (one) tablet by mouth once daily 4 Active azithromycin (Zithromax) 250 MG tablet TAKE 2 TABLETS BY MOUTH TODAY, THEN TAKE 1 TABLET DAILY FOR 4 DAYS DIRECTED 4 Active propranolol ER 24hr (Inderal LA) 80 MG capsule Take 1 (one) capsule by mouth once daily 4 Active Nurtec 75 MG tablet 75 MG ORALLY ONCE NEEDED FOR MIGRAINE HEADACHE A SINGLE DOSE 4 Active metFORMIN ER 24hr (Glucophage XR) 500 MG tablet Take 1 (one) tablet by mouth every evening 4 Active Aimovig 70 MG/ML auto injector pen Inject 1 mL subcutaneously every 30 days 5 Active Active Problems Problem Noted Date Diagnosed Date Fibromyalgia 08/19/2024 Assessment & Plan (08/19/2024 11:45 AM GLOBAL SUPPLY CHAIN DIRECTOR): Multiple soft tissue tender points suggestive of allodynia. This may be contributing to patients fatigue symptoms. Patient educated on fibromyalgia and treatment options. Patient would benefit from duloxetine. She would discuss with her primary care physician concerning this. Fibromyalgia is a painful condition that is not completely understood by medical experts. The cause of fibromyalgia is not known. A person may feel tired and ache all over. It causes tender spots on the body that hurt only when pressed upon. A patient may have trouble sleeping, as well as other symptoms. These problems can upset work and home life. Symptoms tend to come and go, although they may never go away completely. Fibromyalgia does not harm the muscles, joints or organs or cause any permanent deformity or disability in the body. Fibromyalgia syndrome is characterized by generalized noninflammatory pain and is associated with long-standing pain that may come and go and be variable or at time persistently contant. The pain may be located in the soft tissues including tendons or muscles or joints. The pain can occur in any of the extremities and also be felt along the spine or torso. This is the reason some people feel that they have arthritis. Other unusual symptoms that may suggest an underlying neurologic disorder have also been described in patients with fibromyalgia including numbness and tingling type sensations and shooting pains. Patients often describe fatigue and may awaken with non restorative sleep quality. The condition can occur in men or women in any age but is most common in women routine the ages of 20 in 50. There is no specific test used that can confirm the diagnosis of fibromyalgia and is considered a diagnosis of exclusion where by other conditions need to be excluded and this may or may not require additional test to be performed. The current nature of fibromyalgia seems to suggest that this syndrome represents a disorder of increased sensitivity in pain perception or so-called central pain amplification. Unfortunately, the exact cause of this disorder still remains elusive and unknown and limits the treatment to symptom relief without any known cure at this time. False positive antinuclear antibody (DELMAR) level 08/19/2024 Assessment & Plan (08/19/2024 10:08 AM GLOBAL SUPPLY CHAIN DIRECTOR): The finding of a positive antinuclear antibody (DELMAR), especially with a low pretest probability for an associated connective tissue disease, is currently considered to be of undetermined clinical significance (often referred to as a false positive result) with her historical elements/symptoms reviewed, current clinical examination findings, and additional available laboratory results reviewed, regarding this result not consistent with a specific diagnosis of a defined systemic connective tissue disease including systemic lupus erythematosus or systemic inflammatory rheumatic disorder by [employer] (ACR) diagnostic classification criteria at this time. Karlee Marrero lacks features of any systemic autoimmune DELMAR-related connective tissue disease. DELMAR positivity is present in up to 30% of the normal population . Since the prevalence of SLE is only ~0.1%, most positive DELMAR results can be attributed to other etiologies or considered represent f alse-positive results. DELMAR positivity increases in prevalence with female gender, older age, and numerous other conditions. DELMAR with a dense fine speckled pattern is rarely associated with a systemic rheumatologic connective tissue disease including systemic lupus erythematosus. Encounter for removal of sutures 09/18/2021 Arthralgia of right hand 08/07/2019 Overview (09/18/2021): Labs (08/07/2019): ALT (37), ESR (24), CRP (10.8) AVISE (08/07/2019): DELMAR 1:320 dense fine speckled US R hand/wrist (08/10/2019): Mild/moderate 2nd MCP and moderate 3rd MCP synovial thickening. Marked 2nd PIP and moderate/marked 3rd PIP synovial thickening on examination which will have to be correlated clinically. 4th compartment effusion. Last Assessment & Plan: US R hand/wrist (08/10/2019): Mild/moderate 2nd MCP and moderate 3rd MCP synovial thickening. Marked 2nd PIP and moderate/marked 3rd PIP synovial thickening on examination which will have to be correlated clinically. 4th compartment effusion. Serologies revealed a positive DELMAR 1:320 as well as a mildly elevated ESR (24) and CRP (10.8) but were otherwise unremarkable. Continues to note pain in her right wrist and 1st digit. No other obvious synovitis or tenderness noted on peripheral exam today. US findings are borderline moderate/marked for synovial thickening in the 2nd and 3rd PIP joints. Based on mild findings on US and unremarkable physical exam, her symptoms do not appear to be related to a rheumatological etiology. Recommend she follow up with ortho Dr. Vargas for further management. Follow up with us as needed for any new or worsening symptoms. Seen with Dr. Vick. 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 Overview (09/18/2021): Added automatically from request for surgery [id number] Social History Tobacco Use Types Packs/Day Years Used Date Smoking Tobacco: Never Smokeless Tobacco: Never Tobacco Cessation:Counseling Given: Not Answered Alcohol Use Standard Drinks/Week Comments Never 0 (1 standard drink = 0.6 oz pur e alcohol) PHQ-2 Answer Date Recorded Patient Health Questionnaire-2 Score 2 08/19/2024 Comments No Sex and Gender Information Value Date Recorded Sex Assigned at Not on file Legal Sex Female 6:31 AM GLOBAL SUPPLY CHAIN DIRECTOR Gender Identity Not on file Sexual Orientation Not on file Last Filed Vital Signs Vital Sign Reading Time Taken Comments Blood Pressure 108/70 08/19/2024 9:13 AM GLOBAL SUPPLY CHAIN DIRECTOR Pulse 74 08/19/2024 9:13 AM GLOBAL SUPPLY CHAIN DIRECTOR Temperature 36.3 C (97.3 F) 08/19/2024 9:13 AM GLOBAL SUPPLY CHAIN DIRECTOR Respiratory Rate 18 08/19/2024 9:13 AM GLOBAL SUPPLY CHAIN DIRECTOR Oxygen Saturation 97% 08/19/2024 9:13 AM GLOBAL SUPPLY CHAIN DIRECTOR Inhaled Oxygen Concentration - - Weight 155 kg (341 lb 12.8 oz) 08/19/2024 9:13 A M GLOBAL SUPPLY CHAIN DIRECTOR Height 177.8 cm (5' 10) 07/04/2023 6:54 AM GLOBAL SUPPLY CHAIN DIRECTOR Body Mass Index 49.04 07/04/2023 6:54 AM GLOBAL SUPPLY CHAIN DIRECTOR Plan of Treatment Upcoming Encounters Date Type Department Care Team (Late st Contact Info) Description 02/16/2025 1:00 PM CDT Office Visit [facility] - Rheumatology [address] [place] [address], [place] [address] Angelia Costa MD [address] [place] [address] [place] [address] Health Maintenance Due Date Last Done Comments PAP SMEAR 1987 HIV SCREENING 2002 HEPATITIS C SCREENING 06/28/2005 DTAP/TDAP/TD VACCINES (1 - Tdap) 2006 HEPATITIS B VACCINE (1 of 3 - 19+ 3-dose series) 2006 COVID-19 VACCINE ( - 2023-2 5 season) 2024 INFLUENZA VACCINE (Season Ended) 2025 ZOSTER VACCINE (1 of 2) 2037 DEPRESSION SCREENING Completed 08/19/2024, 08/14/2023 HIB VACCINE Aged Out No longer eligi ble based on patient's age to complete this topic HPV VACCINE Aged Out No longer eligi ble based on patient's age to complete this topic MENINGOCOCCAL (Group B) VACCINE SHARED DECISION-MAKING Aged Out No longer eligible based on patient's age to complete this topic MENINGOCOCCAL GROUPS A/C/Y/W VACCINE Aged Out No longer eligible b ased on patient's age to complete this topic PNEUMOCOCCAL VACCINE Aged Out No long er eligible based on patient's age to complete this topic Medical Devices Implanted Type Area Recreational Sports Director Device Identifier Shelf Expiration Date Model / Serial / Lot Kiah Loredo 4.75mm Bc Implanted:Qty: 1 on 05/31/2022 by Kristy Ramírez MD at [facility] Right: Shoulder [employer] 05/04/2026 [id number] / / [id number] Agency Sut Rgnrt Tndn Implanted:Qty: 1 on 07/04/2023 by Kristy Ramírez MD at [facility] Right: Shoulder [employer] 12/13/2025 [id number] / / [id number] Agency Sut Bone 3mm W Arthsc Dlv Implanted:Qty: 1 on 07/04/2023 by Kristy Ramírez MD at [facility] Right: Shoulder [employer] 02/27/2026 [id number] / / [id number] Impl Bio Tiss Regeneten Med Rotr Cuf Implanted:Qty: 1 on 07/04/2023 by Kristy Ramírez MD at [facility] Right: Shoulder [employer] 02/21/2026 [id number] / / [id number] Insurance [employer] Care Teams Gear Repair Supervisor Relationship Specialty Start Date End Date Julio Vergara DO [address] [place] [id number] PCP - General Family Medicine 09/18/21
--- OUTSIDE RECORDS SUMMARY | 2025-01-09 09:16 | XMS_ITS | Patient Health Record ---
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 Name Role Phone Ricardo JIN, Joleen Primary Care Provider Michael Arlette Tong Unavailable [phone] Allergies Allergen (clinical drug ingredient) Drug/Non Drug Allergy documented on EMR Reaction Allergy Type Onset Date Status hydrocodone Hydrocodone Unknown Drug Allergy Act erika Substance with sulfonamide structure and antibacterial mechanism of action (substance) Sulfa Antibiotics Unknown Drug Allergy Active Results Component Value Reference Range Notes MML MISC BLD Reviewed date:10/11/2024 08:48:19 PM Interpretation: Performing Lab:[facility] , [address] [place] [address] [facility]. [facility] [address] Notes/Report: Keyword See Below AB2GP Beta-2 Gl ycoprotein 1 Antibodies, IgA, Serum Misc Result See Footnote Test Result Flag Unit RefValue Test Performed by: [address] [address] Biotech Production Specialist: Sergio Farley Ph.D.; CLIA# [id number] Beta 2 GP1 Ab IgA, S <9.4 ASAD -- REFERENCE VALUE -- <15.0 (Negative) Differential Automated Reviewed date:10/07/2024 12:46:00 PM Interpretation: Performing Lab:[facility] , [address] [facility]. [place] [address] Notes/Report: Neut Abs 4.7 1.5-6.5 K/cumm ImmGran Abs 0.0 0.0-0.1 K/cumm Lymphocyte Abs 1.6 0.8-3.3 K/cumm Wat[place]wan Abs 0.4 0.2-0.8 K/cumm Eos Abs 0.1 0.0-0.5 K/cumm Baso Abs 0.1 0.0-0.1 K/cumm Neut Pct 68.6 Interpretive Data Percent cell count reference ranges are not reported, since discordance with absolute values may lead to misinterpretation of CBC data. Current Interpretive Data was last revised on 2017. ImmGran Pct 0.1 Interpretive Data Percent cell count reference ranges are not reported, since discordance with absolute values may lead to misinterpretation of CBC data. Current Interpretive Data was last revised on 2017. Lymph Pct 23.5 Interpretive Data Percent cell count reference ranges are not reported, since discordance with absolute values may lead to misinterpretation of CBC data. Current Interpretive Data was last revised on 2017. [place] Pct 5.6 Interpretive Data Percent cell count reference ranges are not reported, since discordance with absolute values may lead to misinterpretation of CBC data. Current Interpretive Data was last revised on 2017. Eos Pct 1.5 Interpretive Data Percent cell count reference ranges are not reported, since discordance with absolute values may lead to misinterpretation of CBC data. Current Interpretive Data was last revised on 2017. Baso Pct 0.7 Interpretive Data Percent cell count reference ranges are not reported, since discordance with absolute values may lead to misinterpretation of CBC data. Current Interpretive Data was last revised on 2017. Cardio IgG IgM Reviewed date:10/08/2024 01:08:48 PM Interpretation: Performing Lab:[facility] , [address] [facility]. [place] [address] Notes/Report: Current interpretive data was last revised on 2017. assay methods may not be used interchangeably. 2200 System. Cardiolipin IgM values obtained with different manufacturers' disease antibodies. These results were obtained with the [employer] cross-reactivity with Rheumatoid factor, dsDNA or certain infectious PRISCILA. The ACL IgM test can produce false positive results due to Congress on Antiphospholipid Antibodies does not recommend testing for IgA data based on the 99th percentile. In addition, the International antiphospholipid syndrome. The cutoff for this assay was developed from more occasions, at least 12 weeks apart, to support a diagnosis of medium or high titer (e.g. > 40 MPL, or >the 99th percentile), on two or Antibodies recommends ACL antibodies of IgG or IgM isotype present in improve specificity, the International Congress on Antiphospholipid syndrome including inflammatory and infectious conditions. In order to co-morbidities not associated with the antiphospholipid antibody (APA) antibodies occurs in both healthy individuals and patients with morbidity. However, detection of low levels of anticardiolipin including unexplained arterial and venous thromboemboli, and unexplained Anticardiolipin antibodies are associated with certain clinical events Positive: > or = 20 MPL U/mL Negative: <20 MPL U/mL Interpretive Data Cardiolipin Ab, IgG <1.6 <=19.9 GPL U/mL Interpretive Data Negative: <20 GPL U/mL Positive: > or = 20 GPL U/mL Anticardiolipin antibodies are associated with certain clinical events including unexplained arterial and venous thromboemboli, and unexplained morbidity. However, detection of low levels of anticardiolipin antibodies occurs in both healthy individuals and patients with co-morbidities not associated with the antiphospholipid antibody (APA) syndrome including inflammatory and infectious conditions. In order to improve specificity, the International Congress on Antiphospholipid Antibodies recommends ACL antibodies of IgG or IgM isotype present in medium or high titer (e.g. > 40 GPL, or >the 99th percentile), on two or more occasions, at least 12 weeks apart, to support a diagnosis of antiphospholipid syndrome. The cutoff for this assay was developed from data based on the 99th percentile. In addition, the International Congress on Antiphospholipid Antibodies does not recommend testing for IgA PRISCILA. These results were obtained with the [employer] 2200 System. Cardiolipin IgG values obtained with different manufacturers' assay methods may not be used interchangeably. Current interpretive data was last revised on 2017. Cardiolipin Ab, IgM 5.5 <=19.9 MPL U/mL eGFR Reviewed date:10/07/2024 03:34:18 PM Interpretation: Performing Lab:[facility] , [facility]. [facility] [address] Notes/Report: eGFR >90 >=60 mL/min/1.73 m2 Interpretive Data Reference Interval Normal >/= 90 mL/min/1.73m2 Mildly decreased* 60 - 89 mL/min/1.73m2 Mildly to moderately decreased 45 - 59 mL/min/1.73m2 Moderately to severely decreased 30 - 44 mL/min/1.73m2 Severely decreased 15 - 29 mL/min/1.73m2 Kidney Failure < 15 mL/min/1.73m2 *Relative to young adult level Estimated glomerular filtration rate is determined by the 2020 CKD-EPI equation recommended by the National Kidney Foundation (A Unifying Approach to GFR Estimation: Recommendations of the NKF-ASK Task Force on Reassessing the Inclusion of Race in Diagnosing Kidney Disease, JASN 2020). The CKD-EPI equation should not be used for patients with unstable renal function and has not been validated in children and those over 70. Current interpretive data was last reviewed 2021. SSB Ab Reviewed date:10/08/2024 11:13:08 AM Interpretation: Performing Lab:[facility] , [address] [place] [address]. [facility] [address] Notes/Report: SS B Antibody 0.7 <=0.9 Ab Index Interpretive Data Negative: < 1.0 Ab Index Positive: > or = 1.0 Ab Index Current interpretive data was last revised on 2016. SSA Ab Reviewed date:10/08/2024 11:13:08 AM Interpretation: Performing Lab:[facility] , [address] [place] [address]. [facility] [address] Notes/Report: SS A Antibody 0.3 <=0.9 Ab Index Interpretive Data Negative: < 1.0 Ab Index Positive: > or = 1.0 Ab Index Current interpretive data was last revised on 2016. Marrero Ab. Reviewed date:10/08/2024 11:13:08 AM Interpretation: Performing Lab:[facility] , [facility]5 [facility]. [facility] [address] Notes/Report: Marrero Antibody <0.2 <=0.9 Ab Index Interpretive Data Negative: < 1.0 Ab Index Positive: > or = 1.0 Ab Index Current interpretive data was last revised on 2016. Sed Rate Reviewed date:10/07/2024 03:34:19 PM Interpretation: Performing Lab:[facility] , [address] [place] [address]. [facility] [address] Notes/Report: ESR 17 1-20 mm/hr SCL 70 Antibodies Reviewed date:10/08/2024 11:13:08 AM Interpretation: Performing Lab:[facility] , [address] [place] [address]. [facility] [address] Notes/Report: Scl 70 Ab, IgG 0.2 <=0.9 Ab Index Interpretive Data Negative: < 1.0 Ab Index Positive: > or = 1.0 Ab Index Current interpretive data was last revised on 2016. Ribonuclear Protein (ANIMAL GENETICIST) Ab Reviewed date:10/08/2024 11:13:08 AM Interpretation: Performing Lab:[facility] , [address] [place] [address]. [facility] [address] Notes/Report: ANIMAL GENETICIST Antibody <0.2 <=0.9 Ab Index Interpretive Data Negative: < 1.0 Ab Index Positive: > or = 1.0 Ab Index Current interpretive data was last revised on 2016. Rheumatoid Factor Reviewed date:10/07/2024 03:34:19 PM Interpretation: Performing Lab:[facility] , [address] [place] [address]. [facility] [address] Notes/Report: RF, Aurelio <10 <=15 IUnits/mL Lupus Anticoagulant w/Reflex Reviewed date:10/09/2024 03:23:47 PM Interpretation: Performing Lab:[facility] , [address] [place] [address]. [facility] [address] Notes/Report: PT 11.4 9.7-13.0 sec Testing performed by: [facility], [address] [place] [address] INR 1.05 0.90-1.20 Interpretive data Oral anticoagulant therapeutic ranges: Venous thromboembolism prophylaxis or treatment: 2.0-3.0 CARDIOLOGY Standard range: 2.0-3.0 High-intensity range: 2.5-3.5 Refer to indication-specific guidelines for appropriate target ranges for prosthetic heart valve replacement. Current interpretive data was last revised on 2019. Testing performed by: [facility], [address] [place]., [address] aPTT 31 28-38 sec Interpretive Data Heparin therapeutic range: 66.0 - 100.0 seconds. Range based on correlation with therapeutic heparin activity range of 0.3 - 0.7 Units/mL. Current interpretive data was last revised on 2023. Testing performed by: [facility], [address] [place]., [address] DRVVT Screen Ratio 1.32 0.00-1.20 Ratio Testing performed by: [facility], [address] [place]., [address] DRVVT Confirm Ratio 1.11 Testing performed by: [facility], [address] [facility], [address] DRVVT Scr_Conf Ratio 1.19 0.00-1.20 Ratio Testing performed by: [facility], [address] [place] [address]., [address] SCT Scr Ratio 1.01 0.00-1.16 Ratio Testing performed by: [facility], [address] [place] [address]., [address] LA Interpretation Negative Interpretive data Lupus anticoagulants (LA) are acquired autoantibodies that interfere with invitro clotting in a phospholipid-dependent manner and are associated with an increased risk of thromboembolic events and complications. Routine APTT and PT reagents are not sensitive to inhibition by LA, and should not be used as screening tests. The laboratory follows ISTH 2009 guidelines (Pengo, 2009) for LA testing and interpretation: Two sensitive methods performed in parallel improve sensitivity. One activates the intrinsic pathway (Silica-APTT) and one activates the common pathway (dilute Gordy's viper venom time - dRVVT). Each method begins with a SCREEN step, and if neither is prolonged, no further testing is performed and the interpretation is: NO LA DETECTED. If either screening test is prolonged, then additional steps are performed to provide specificity. A POSITIVE LA result occurs if either one or both tests produce a positive CONFIRM result. An INDETERMINATE result means results cannot distinguish between coagulopathy and a weak LA. Consider retesting when PT/INR is less prolonged, if clinical indicated. To support laboratory confirmation of antiphospholipid syndrome, persistence of a positive LA result should be verified by repeat testing at least 12 weeks later (Sergio, 2006). Prior to LA testing, the laboratory screens patient plasma samples for evidence of heparin contamination, which is neutralized prior to LA testing, and the following interfering conditions which require canceling LA testing: INR >3.0, fibrinogen < 100 mg/dl, use of direct oral or IV anticoagulants other than heparin. References: 1) Wolfgang V, Alma A, [place] JH, Ormarryl TL, Macy M, De Jaylyn PG. Update of the guidelines for lupus anticoagulant detection. J Thromb Haemost. 2009; 7:6101-5484. 2. Sergio Viramontes et al. International consensus statement on an update of the classification criteria for definite antiphospholipid syndrome (APS). J Thromb Haemost. 2006; 4:295-306. Current interpretive data was last revised on 2018 Testing performed by: [facility], [address] [place]., [address] Hep C AB Reviewed date:10/07/2024 03:34:19 PM Interpretation: Performing Lab:[facility] , [address] [place] [address]. [place] [address] Notes/Report: Hepatitis C Antibody Nonreactive Nonreactiv Interpretive Data Nonreactive: Antibodies to HCV not detected. Does NOT exclude the possibility of recent exposure to HCV. Equivocal: Equivocal for HCV antibodies. Supplemental molecular testing will be automatically performed to determine infection status in accordance with current CDC screening recommendations. Reactive: Positive for HCV antibodies. This may represent current or past HCV infection. Supplemental molecular testing will be automatically performed to determine current infection status in accordance with current CDC screening recommendations. Interpretive data was last revised on 2019. Hep B surf AG Reviewed date:10/07/2024 03:34:19 PM Interpretation: Performing Lab:[facility] , [facility]. [place] [address] Notes/Report: Hepatitis B Surface Antigen Nonreactive Nonreactiv G6PD Ql Reviewed date:10/07/2024 04:47:56 PM Interpretation: Performing Lab:[facility] , [address] [place] [address]. [facility] [address] Notes/Report: G6PD, Qual Normal Normal Interp data: G6PD activity should be interpreted in the context of a patient's hematocrit. Hematocrit < 20% may lead to a falsely deficient result, while hematocrit > 50% may lead to a falsely normal result. Current interpretive data was last revised on 2019. Testing performed by: [facility], [address] [place]., [address] DS DNA Reviewed date:10/08/2024 11:13:08 AM Interpretation: Performing Lab:[facility] , [address] [place] [address]. [facility] [address] Notes/Report: Double Stranded DNA, Aurelio 1.0 <=4.0 IUnits/mL Interpretive Data Negative: < or = 4 IUnits/mL Indeterminate: 5 - 9 IUnits/mL Positive: > or = 10 IUnits/mL Current interpretive data was last revised on 2016. Creatine Kinase Reviewed date:10/07/2024 03:34:19 PM Interpretation: Performing Lab:[facility] , [address] [place] [address]. [facility] [address] Notes/Report: Total CK 108 30-200 Units/L Comprehensive metabolic pane l (CMP) Reviewed date:10/07/2024 03:34:19 PM Interpretation: Performing Lab:[facility] , [address] [place] [address]. [facility] [address] Notes/Report: Sodium 138 135-145 mmol/L Plasma Potassium 4.1 3.3-4.9 mmol/L Chloride 104 97-110 mmol/L Total CO2 23 22-32 mmol/L Anion Gap 11 2-15 mmol/L BUN 9 6-25 mg/dL Creatinine 0.62 0.60-1.10 mg/dL Glucose 100 70-199 mg/dL Interpretive Data Fasting glucose >/= 126 mg/dl is diagnostic for diabetes. Fasting is defined as no caloric intake for at least 8 hours. Fasting glucose between 100 mg/dl to 125 mg/dl is diagnostic of prediabetes. In a patient with classic symptoms of hyperglycemia or hyperglycemic crisis, a random glucose >/= 200 mg/dl is diagnostic for diabetes. In the absence of unequivocal hyperglycemia, results should be confirmed by repeat testing. The classification and Diagnosis of Diabetes Diabetes Care 2021; 46: S19-S40. Current interpretive data was last revised 2022. Total Calcium 8.8 8.5-10.3 mg/dL Total Bilirubin 0.6 0.1-1.2 mg/dL Plasma Total Protein 7.1 6.5-8.5 g/dL Albumin 4.0 3.5-5.0 g/dL Alkaline Phosphatase 71 40-130 Units/L ALT 33 7-45 Units/L AST 30 10-45 Units/L Complement C4 Reviewed date:10/07/2024 03:34:19 PM Interpretation: Performing Lab:[facility] , [address] [place] [address]. [place] [address] Notes/Report: Complement, C4 42 10-40 mg/dL Complement C3 Reviewed date:10/07/2024 03:34:19 PM Interpretation: Performing Lab:[facility] , [address] [place] [address]. [place] [address] Notes/Report: Complement, C3 153 90-180 mg/dL CBC w auto diff Reviewed date:10/07/2024 12:46:00 PM Interpretation: Performing Lab:[facility] , [address] [place] [address]. [place] [address] Notes/Report: WBC 6.8 3.8-9.9 K/cumm Hgb 12.7 11.9-15.5 g/dL Hct 39.9 35.6-45.5 % Platelet Ct 206 150-400 K/cumm MPV 10.8 9.1-12.3 fL RBC 4.73 3.90-5.20 M/cumm MCV 84.4 81.3-96.4 fL MCH 26.8 27.1-33.3 pg MCHC 31.8 32.3-35.7 g/dL RDW CV 13.4 11.1-14.9 % RDW SD 41.1 35.7-48.1 fL NRBC Abs Auto 0.00 0.00-0.01 K/cumm C Reactive Protein Reviewed date:10/07/2024 03:34:19 PM Interpretation: Performing Lab:[facility] , [address] [place] [address]. [facility] [address] Notes/Report: C-Reactive Protein 9.8 <=10.0 mg/L Beta 2 Glycoprotein Ab IgG, IgM Reviewed date:10/08/2024 11:55:41 AM Interpretation: Performing Lab:[facility] , [address] [place] [address]. [facility] [address] Notes/Report: B2GPI IgG <1.4 <=19.9 units/mL Interpretive Data Negative: <20 U/mL Positive: > or = 20 U/mL Beta-2 glycoprotein 1 (Beta-2 GP1) antibodies are a more specific marker of thrombotic risk. It is expected that some samples will be ACL positive and Beta-2 [id number]. In order to improve specificity, the International Congress on Antiphospholipid Antibodies recommends Beta-2 GP1 antibodies of IgG or IgM isotype (> the 99th percentile), obtained twice, at least 12 weeks apart, to support a diagnosis of antiphospholipid syndrome. The cutoff for this assay was developed from data based on the 99th percentile. These results were obtained with the [employer] 2200 System. Beta 2GP1 IgG values obtained with different manufacturers' assay methods may not be used interchangeably. Current interpretive data was last revised on 2017. B2GPI IgM 6.2 <=19.9 units/mL Interpretive Data Negative: <20 U/mL Positive: > or = 20 U/mL Beta- 2 glycoprotein 1 (Beta-2 GP1) antibodies are a more specific marker of thrombotic risk. It is expected that some samples will be ACL positive and Beta-2 GP1 negative. In order to improve specificity, the International Congress on Antiphospholipid Antibodies recommends Beta-2 GP1 antibodies of IgG or IgM isotype (> the 99th percentile), obtained twice, at least 12 weeks apart, to support a diagnosis of antiphospholipid syndrome. The cutoff for this assay was developed from data based on the 99th percentile. The Beta-2 GP1 IgM test can produce false positive results due to cross-reactivity with Rheumatoid factor. These results were obtained with the [employer] 2200 System. Beta-2 GP1 IgM values obtained with different manufacturers' assay methods may not be used interchangeably. Current interpretive data was last revised on 2017. Anti-CCP (Cyclic Citrullinat ed Peptide Ab) Reviewed date:10/08/2024 01:08:48 PM Interpretation: Performing Lab:[facility] , [facility]. [facility] [address] Notes/Report: CCP Ab <0.5 <=2.9 units/mL Interpretive data Negative: <3 units/mL Positive: > or equal to 3 units/mL Current interpretive data was last revised on 2016. EKATERINA Screen Reviewed date:10/08/2024 01:08:48 PM Interpretation: Performing Lab:[facility] , [address] [place] [address]. [facility] [address] Notes/Report: EKATERINA Screen Negative Negative Interpretive Data Positive Screens will be reflexed to specific testing for Antibodies against the following antigens: Nuris-1 Ab, ANIMAL GENETICIST Ab, Scl-70 Ab, Marrero Ab, SS-A/Ro Ab, and SS-B/La Ab. Further testing for dsDNA, Centromere, or Ribosomal P antibodies is suggested in patient with a positive screen and negative specific antibodies. Current interpretive data was last revised on 2023. DELMAR reflex titer pattern EKATERINA + dsDNA Reviewed date:10/08/2024 12:01:36 PM Interpretation: Performing Lab:[facility] , [address] [place] [address]. [facility] [address] Notes/Report: DELMAR, Qual Positive 1:640 Interpretive Data Normal range for DELMAR Qualitative Antibody = Negative. 1. DELMAR is performed using indirect immunofluorescence against HEp-2 cells 2. DELMAR titers are performed on all positive qualitative results. 3. A significantly positive DELMAR result is defined as a positive nuclear fluorescence at a titer of 1:80 or greater. 4. 15% of normal people above age 65 have significantly positive DELMAR results. 5% or less of normal people age 65 or under have significantly positive DELMAR results. Current interpretive data was last revised on 2020. Testing performed by: [facility], [address] [facility] [place] [address] DELMAR, Aurelio 1:640 Testing performed by: [facility], [address] [facility] [place] [address] DELMAR Pattern 1 Speckled Testing performed by: [facility], [address] [place]., [address] Reason For Referral No Information Medications Medication SIG (Take, Route, Frequency, Duration) Notes Start Date End Date Status metFORMIN HCl 500 MG 1 tablet with a carlos l Orally Once a day for 30 day(s) Active traZODone HCl 50 MG 1 tablet at bedtime as needed Orally Once a day for 30 day(s) Active Modafinil 100 MG 1 tablet in the morning Orally Once a day Active Hydroxychloroquine Sulfate 200 MG 2 Orally daily with food for 90 days 10/21/2024 03/21/2025 Active Propranolol HCl 80 MG 1 tablet Orally Tw ice a day for 30 day(s) Active Concerta 27 MG 1 tablet in the morning Orally Once a day Active Social History Tobacco Use: Social History Observation Description Date Details (start date - stop date) Never Smoker NA - NA Household Question Answer Notes Marital status: Number of children in household: 3 Tobacco Control (Standard) Question Answer Notes Tobacco use: Nonsmoker Problems Problem Type SNOMED Code ICD Code Onset Dates Problem Status W/U Status Risk Notes Problem 565114982 Fibromyalgia (M79.7) Active confirmed Problem 4212117 Inflammatory arthritis (M19.90) Active confirmed Vital Signs Heart Rate 80 /min 12/21/2024 Temperature 97.6 degrees Fahrenheit 12/21/2024 Blood pressure diastolic 80 mm Hg 12/21/2024 Height-cm 177.8 cm 12/21/2024 Oximetry 97 % 12/21/2024 Weight-kg 155.58 kg 12/21/2024 Height 70 in 12/21/2024 Blood pressure systolic 120 mm Hg 12/21/2024 Weight 343.0 lbs 12/21/2024 BMI 49.21 kg/m2 12/21/2024 Encounters Encounter Location Date Provider Diagnosis [facility] [address] [place] [address] 10/07/2024 Arlette Du Multiple joint pain M25.50 ; DELMAR positive R76.8 and Fibromyalgia M79.7 [facility] [address] [facility] [address] [place] [address] 10/21/2024 Arlette Du Multiple joint pain M25.50 ; Inflammatory arthritis M19.90 ; DELMAR positive R76.8 and Fibromyalgia M79.7 [facility] [address] [place] [address] 12/21/2024 Arlette Mauro Multiple joint pain M25.50 ; Inflammatory arthritis M19.90 ; DELMAR positive R76.8 and Fibromyalgia M79.7 [facility] [address] [place] [address] 12/22/2024 [facility] [address] [place] [address] 09/14/2024 [facility] [address] [place] [address] 09/23/2024 [facility] [address] [place] [address] 11/04/2024 Arlette Mauro Assessments Encounter Date Diagnosis (ICD Code) Assessment Notes Treatment Notes Treatment Clinical Notes Section Notes 10/07/2024 DELMAR positive (ICD-10 - R76.8) 39 year old female with history of fibromyalgia. She also has joint pain, sicca symptoms, positive DELAMR and mildly elevated inflammatory markers. Serologies will be ordered. Follow up visit will be scheduled. Thank you for referring this patient. 10/07/2024 Multiple joint pain (ICD-10 - M25.50) 39 year old female with history of fibromyalgia. She also has joint pain, sicca symptoms, positive DELMAR and mildly elevated inflammatory markers. Serologies will be ordered. Follow up visit will be scheduled. Thank you for referring this patient. 10/21/2024 Inflammatory arthritis (ICD-10 - M19.90) labs discussed with patient, start plaquenil 200mg/day, return in 2 months 10/21/2024 Multiple joint pain (ICD-10 - M25.50) labs discussed with patient, start plaquenil 200mg/day, return in 2 months 12/21/2024 Multiple joint pain (ICD-10 - M25.50) improving, increase plaquenil to 400mg/day, returnin 3 months 12/21/2024 Inflammatory arthritis (ICD-10 - M19.90) improving, increase plaquenil to 400mg/day, returnin 3 months 10/07/2024 Fibromyalgia (ICD-10 - M79.7) 39 year old female with history of fibromyalgia. She also has joint pain, sicca symptoms, positive DELMAR and mildly elevated inflammatory markers. Serologies will be ordered. Follow up visit will be scheduled. Thank you for referring this patient. 10/21/2024 DELMAR positive (ICD-10 - R76.8) labs discussed with patient, start plaquenil 200mg/day, return in 2 months 10/21/2024 Fibromyalgia (ICD-10 - M79.7) labs discussed with patient, start plaquenil 200mg/day, return in 2 months 12/21/2024 DELMAR positive (ICD-10 - R76.8) improving, increase plaquenil to 400mg/day, returnin 3 months 12/21/2024 Fibromyalgia (ICD-10 - M79.7) improving, increase plaquenil to 400mg/day, returnin 3 months Plan Of Treatment Pending Test Test Name Order Date DELMAR Ql reflex to Qn 10/07/2024 Beta 2 Glycoprotein IgA Ab 10/07/2024 Cardiolipin Ab (IgA) 10/07/2024 Cardiolipin Ab (Ig G) 10/07/2024 Cardiolipin Ab (Ig M) 10/07/2024 Next Appt Details Provider Name:Arlette Mauro, 03/24 01:45:00 PM, [address], [place], [address], Insurance Providers Payer Name Payer Address Payer Phone Subscriber Number Group Number Insured Name Patient Relationship to Insured Coverage Start Date Coverage End Date [employer] - Commercial [address] [place] [address] [phone] [id number] Robert Marrreo Spouse - patient is the spouse of the insured [employer] [address] [address] [facility] [place] [address] [phone] [id number] Karlee Marrero Self - patient is the insured Medical (General) History Medical History History ICD Code anemia, kidney stone, de Quervain's teno synovitis Surgical History Surgery Date(Month/Year) ulnar nerve surgery, lithotripsy, append ectomy, lipoma removal, D&C
--- OUTSIDE RECORDS SUMMARY | 2025-01-09 09:17 | XMS_ITS | Referral Summary ---
Author Organization [facility] Address [facility] [place] [address] Care Team Providers Care Tool Planner Name Role Phone Saurav Vick MD Unavailable [phone] No, Physician Primary Care Provider [phone] Allergies Active Allergy Reactions Criticality Noted Date Comments Hydrocodone Nausea & Vomiting Low 06/18/2019 Ondansetron Headache,Vomiting Low 06/18/2019 Medications ibuprofen (ADVIL,MOTRIN) 800 mg tablet Take 800 mg by mouth every 6 (six) hours as needed for pain Active traMADol (ULTRAM) 50 mg tablet Take 1 tablet (50 mg total) by mouth every 6 (six) hours as needed for pain 12 tablet 09/02/19 20 Active omeprazole (PriLOSEC) 20 mg capsule Take by mouth daily 03/14/20 20 Active prochlorperazi ne (COMPAZINE) 10 mg tablet Take 0.5 tablets (5 mg total) by mouth 2 (two) times a day as needed for nausea or vomiting (migraine- Please take 25 mg diphenhydramine prior to taking the Compazine) 10 tablet 12/09/19 24 Active Active Problems Problem Noted Date Diagnosed Date Arthralgia of right hand 08/07/2019 Overview (08/17/2019): Labs (08/07/2019): ALT (37), ESR (24), CRP (10.8) AVISE (08/07/2019): DELMAR 1:320 dense fine speckled US R hand/wrist (08/10/2019): Mild/moderate 2nd MCP and moderate 3rd MCP synovial thickening. Marked 2nd PIP and moderate/marked 3rd PIP synovial thickening on examination which will have to be correlated clinically. 4th compartment effusion. 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 Seen with Dr. Vick. Assessment & Plan (08/07/2019 12:12 PM OUTBOARD MOTORS EXPERIMENTAL MECHANIC): Patient presents with persistent pain in right wrist and thumb for the past 4 months. Pain is worse with activity. Reports intermittent swelling in several digits of her right hand as well but denies pain with this. Labs via ortho revealed a mildly elevated ESR and CRP. MRI and US revealed a ganglion cyst in the right wrist. Failed intra-articular corticosteroid injections x3 and NSAIDs. Swelling and tenderness noted in the right wrist and thumb on exam today. No other obvious synovitis or tenderness noted on peripheral exam. Symptoms and exam are suspicious for mechanical pain. Will order appropriate serologies and a right hand/wrist US to further evaluate. Follow up in 2 weeks. Sooner if needed. Seen with Dr. Vick. Radial styloid tenosynovitis (de quervain) 06/10 Overview (06/10/2019): Added automatically from request for surgery [id number] 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 Social History Tobacco Use Types Packs/Day Years Used Date Smoking Tobacco: Never Smokeless Tobacco: Never Alcohol Use Standard Drinks/Week Comments Yes 0 (1 standard drink = 0.6 oz pur e alcohol) AUDIT-C Answer Date Recorded Frequency of Alcohol Consumption Monthly or less 08/28/2019 Average Number of Drinks Not on file 020 Frequency of Binge Drinking Not on file 08/06 Comments No Sex and Gender Information Value Date Recorded Sex Assigned at Not on file Legal Sex Female 9:42 AM CDT Gender Identity Not on file Sexual Orientation Not on file Last Filed Vital Signs Vital Sign Reading Time Taken Comments Blood Pressure 150/90 12/09/2023 3:00 PM CDT Pulse 72 12/09/2023 3:00 PM CDT Temperature 36.7 C (98 F) 12/09/2023 3:00 PM CDT Respiratory Rate 16 12/09/2023 3:00 PM CDT Oxygen Saturation 98% 12/09/2023 3:00 PM CDT Inhaled Oxygen Concentration - - Weight 136.1 kg (300 lb) 12/09/2023 10:55 AM CDT Height 177.8 cm (5' 10) 12/09/2023 10:55 AM CDT Body Mass Index 43.05 12/09/2023 10:55 AM CDT Plan of Treatment Not on file Procedures Procedure Name Priority Date/Time Associated Diagnosis Comments HEPATITIS C ANTIBODY Routine 10/07/2024 9:59 AM OUTBOARD MOTORS EXPERIMENTAL MECHANIC from Last 3 Months or Most Recently Relevant to Health Maintenance Results * Hepatitis C antibody Blood (10/07/2024 9:59 AM OUTBOARD MOTORS EXPERIMENTAL MECHANIC) Hep C Ab Nonreactive Nonreactive Comment: Interpretive Data Nonreactive: Antibodies to HCV not [...] Interpretive data was last revised on 2019. Blood 10/07/2024 9:59 AM OUTBOARD MOTORS EXPERIMENTAL MECHANIC 10/07/2024 12:20 PM OUTBOARD MOTORS EXPERIMENTAL MECHANIC us Arlette Mauro MD LAB MICROBIOLOGY - GENERAL ORDER MELODIE Final Result [facility] [address] Department [place] [address] from Last 3 Months or Most Recently Relevant to Health Maintenance Insurance [facility] Care Teams Tool Planner Relationship Specialty Start Date End Date No, Physician PCP - General 07/19/20 Saurav Vick MD [address] [address] Consulting Physician Rheumatology 06/25/19
--- OUTSIDE RECORDS SUMMARY | 2025-01-09 09:17 | XMS_ITS | Clinical Summary ---
Author Organization [facility] Address [facility] [place] [address] Care Team Providers Care Clearance Cutter Name Role Phone Saurav Vick MD Unavailable [phone] No, Physician Primary Care Provider [phone] Allergies Active Allergy Reactions Criticality Noted Date [...] effusion. Assessment & Plan (08/20/2019 1:16 PM HR MANAGER): US R hand/wrist (08/10/2019): Mild/moderate 2nd MCP [...] Vick. Assessment & Plan (08/07/2019 12:12 PM HR MANAGER): Patient presents with persistent pain in right [...] (06/10/2019): Added automatically from request for surgery [id number] 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 Surgical History Surgery Date Site/Laterality Comments NEUROPLASTY / TRANSPOSITION ULNAR NERVE AT ELBOW 08/05/2017 - 08/04/2018 Right LIPOMA RESECTION 08/05/2017 - 08/04/2018 Right APPENDECTOMY 08/05/2007 - 08/04/2008 DILATION AND CURETTAGE OF UTERUS 08/05/2008 - 08/04/2009 with Novasure ablation LITHOTRIPSY Medical History Medical History Date Comments Anemia PONV (postoperative nausea a nd vomiting) with ulnar nerve transpositi on surgery. Primary localized osteoarthr osis of hand 05/26/2019 Radial styloid tenosynovitis (de quervain) 06/10/2019 Added automatically from [facility] uest for surgery [id number] Nephrolithiasis Family History Medical History Relation Name Comments Diabetes Father Hypertension Father Anesthesia problems Neg Hx Relation Name Status Comments Father Social History Tobacco Use Types Packs/Day Years [...] on file Sexual Orientation Not on file Obstetrics History Last Filed Vital Signs Vital Sign Reading [...] 12/09/2023 10:55 AM CDT Plan of Treatment Health Maintenance Due Date Last Done Comments Cervical Cancer Screening 1987 Depression Screening 1987 DTaP/Tdap/Td Vaccine (1 - Tdap) 1998 Varicella Vaccines (1 of 2 - 13+ 2-dose series) 2000 Hepatitis B Screening 2005 Regular Well Visit/Exam 18-64 2005 Influenza Vaccine (Season Ended) 2025 08/05/19 18 Hepatitis C Screening Completed 10/07/2024 HPV Vaccines Aged Out No longer eligi ble based on patient's age to complete this topic Pneumococcal vaccine <65 Aged Out No longer eligible based on patient's age to complete this topic Procedures Procedure Name Priority Date/Time Associated Diagnosis Comments HEPATITIS C ANTIBODY Routine 10/07/2024 9:59 AM HR MANAGER from Last 3 Months or Most Recently Relevant to Health Maintenance Results * Hepatitis C antibody Blood (10/07/2024 9:59 AM HR MANAGER) Hep C Ab Nonreactive Nonreactive Comment: Interpretive [...] revised on 2019. Blood 10/07/2024 9:59 AM HR MANAGER 10/07/2024 12:20 PM HR MANAGER Arlette Mauro MD LAB MICROBIOLOGY - GENERAL ORDER MELODIE Final Result [facility] [address] Department [place] [address] from Last 3 Months or Most Recently Relevant to Health Maintenance Insurance [facility] [facility] HMO [facility] [place] [address] [place] [address] HEALTHCARE HMO Care Teams Clearance Cutter Relationship Specialty Start Date End Date No, Physician PCP - General 07/19/20 Saurav Vick MD [address] [facility] [address] [place] [address] Consulting Physician Rheumatology 06/25/19
--- OUTSIDE RECORDS SUMMARY | 2025-01-09 09:17 | XMS_ITS | Encounter Summary ---
Author Organization [facility] Address [address] [place] [address] Phone Care Team Providers Care Air Brush Artist Name Role Phone Saurav Vick MD Unavailable [phone] No, Physician Primary Care Provider [phone] Encounter Details Date Type Department Care Team (Late st Contact Info) Description 07/19/2020 Orders Only [facility] [phone] Scanning, Provider Social History Tobacco Use Types Packs/Day Years [...] on file Sexual Orientation Not on file documented as of this encounter Plan of Treatment Not on file documented as of this encounter Procedures Procedure Name Priority Date/Time Associated Diagnosis Comments SCAN - RADIOLOGY/IMAGING 07/19/2020 documented in this encounter Results * SCAN - RADIOLOGY/IMAGING (07/19/2020) Anatomical Region Laterality Modality Other us Provider Scanning Final Result documented in this encounter Visit Diagnoses Not on filedocumented in this encounter Care Teams Air Brush Artist Relationship Specialty Start Date End Date No, Physician PCP - General 07/19/20 Saurav Vick MD [address] [facility] [address] [place] [address] Consulting Physician Rheumatology 06/25/19 documented as of this encounter
[2025-01-09 09:34] LABS: Basophils Absolute Auto 0.02 K/mm3 (0.00-0.10); Basophils Percent Auto 0.5 % (0.0-1.0); Eosinophils Absolute Auto 0.11 K/mm3 (0.02-0.50); Eosinophils Percent Auto 2.5 % (1.0-6.0); Hematocrit 40.2 % (35.0-49.0); Hemoglobin 12.7 g/dL (12.0-15.0); Immature Granulocyte Absolute 0.02 K/mm3 (0.00-0.00); Immature Granulocyte Percent A 0.5 % (0.0-0.0); Lymphocytes Absolute Auto 1.27 K/mm3 (1.10-4.50); Lymphocytes Percent Auto 29.1 % (18.0-42.0); Mean Corpuscular HGB Conc 31.6 g/dL (32-36); Mean Corpuscular Hemoglobin 26.4 pg (27.0-31.0); Mean Corpuscular Volume 83.6 fL (78.0-102.0); Mean Platelet Volume 9.8 fl (9.2-11.8); Monocytes Absolute Auto 0.31 K/mm3 (0.10-0.90); Monocytes Percent Auto 7.1 % (2.0-11.0); Neutrophils Absolute Auto 2.64 K/mm3 (1.70-7.20); Neutrophils Percent Auto 60.3 % (50.0-70.0); Platelet Count Result 189 K/mm3 (150-420); Red Blood Count 4.81 M/mm3 (4.20-5.40); Red Cell Distribution Width 13.1 % (11.6-14.4); White Blood Count 4.4 K/mm3 (4.8-10.8)
[2025-01-09 09:44] LABS: Hemoglobin A1C 5.5 % (<5.7)
[2025-01-09 10:35] LABS: Alanine Aminotransferase 25 U/L (6-35); Albumin Level 3.9 g/dL (3.5-5.1); Alkaline Phosphatase 62 U/L (38-126); Anion Gap 5 mmol/L (4-12); Aspartate Amino Transferase 30 U/L (14-36); Bilirubin,Total 0.6 mg/dL (0.2-1.3); Blood Urea Nitrogen 9 mg/dL (7-17); Calcium 8.7 mg/dL (8.4-10.2); Carbon Dioxide 26 mmol/L (22-30); Chloride 107 mmol/L (98-107); Cholesterol 126 mg/dL (0-200); Estimated Glomerular Filt Rate > 60; Glucose 104 mg/dL (65-110); HDL Direct 39 mg/dL; Iron 45 ug/dL (37-170); LDL Cholesterol Calculated 72 mg/dL (<130); Osmolality Calculated 284 mOsm/kg (285-295); Potassium 4.5 mmol/L (3.4-5.0); Sodium 138 mmol/L (137-145); Total Protein 6.8 g/dL (6.3-8.2); Triglycerides 75 mg/dL (<150)
[2025-01-09 10:45] LABS: Percent Iron Saturation 12 % (20-50)
== END 2025-01-09 09:15 | disposition home or self-care (01) ==
LOC: CHSLAB 09:15
PROVIDERS: PCP Nurse Practitioner Family; Visit Provider Nurse Practitioner Family
DX: Z00.00 Encounter for general adult medical examination without abnormal findings (principal); E61.1 Iron deficiency; R05.9 Cough, unspecified; R91.8 Other nonspecific abnormal finding of lung field
CPT/HCPCS: 36415; 71046; 80053; 80061; 83036; 83540; 83550; 84443; 85025